=== PATIENT | female | born 1955 | race Caucasian/White ===

== ENCOUNTER → 2018-10-26 | Outpatient (CLI) | payer BC ==
[~2018-10-26] MED LIST: ALPR1 PO; CITA20 PO; CLON.5 PO; CONEST.625 PO; CREON DR 24,001 EACH PO; CYAN1000I IM; Crutch1 EACH MISC; ESCI10 PO; Hydrocodone-Ap1 EA20 PO; LEVSOD75 PO; Norco 7.5-3251 EACH PO; ONDA4 PO; ONDA4ODT MM; QUETIAPINE FUMA50 MG PO; VITAMIN D250000 UNIT PO
[2018-10-26 16:53] LABS: U Amphetamine Screen Not Detected; U Barbituate Screen Not Detected; U Benzodiazapine Screen Not Detected; U Buprenorphine Screen Not Detected; U Cannabinoids Screen Not Detected; U Cocaine Screen Not Detected; U Methadone Screen Not Detected; U Methamphetamine Screen Not Detected; U Opiates Screen Not Detected; U Oxycodone Screen Not Detected; U Phencyclidine Screen Not Detected; U Propoxyphene Screen Not Detected
== END | disposition home or self-care (01) ==
LOC: LAB 15:36 → LAB SHORT 15:36
PROVIDERS: Hospitalist
DX: I10 Essential (primary) hypertension (principal); G89.4 Chronic pain syndrome
CPT/HCPCS: 82570

== ENCOUNTER → 2018-12-07 | Outpatient (CLI) | payer BC ==
[~2018-12-07] MED LIST changes: +ESCI20 PO; +GABA300 PO; +HYDHCL25 PO; -LEVSOD75 PO; +LEVSOD88 PO; +LISI5 PO; +MORP15ER PO; +QUET100 PO; +Zofran4 MG PO
== END | disposition home or self-care (01) ==
LOC: LAB SHORT 17:00 → LAB 17:00
DX: J20.9 Acute bronchitis, unspecified (principal)
CPT/HCPCS: 87070; 87205

== ENCOUNTER 2018-12-24 05:43 | Day surgery (SDC) | payer BC ==
[~2018-12-24] VITALS: Ht 142.2 cm; Wt 57.1 kg
[~2018-12-24 05:43] MED LIST changes: -HYDHCL25 PO
--- NOTE | 2018-12-24 06:47 | NUR ---
History, Chart, Medications and Allergies reviewed before start of procedure. Patient confirms NPO status and agrees with scheduled surgery. Lungs clear T/O to Auscultation. Patient reports completing Chlorhexadine shower X2 prior to admission to hospital. Pre-Op teaching done. Pt verbalizes understanding. Patient States Post-Procedure ride home has been arranged.
--- NOTE | 2018-12-24 07:16 | NUR ---
SENIOR WINDOWS SYSTEMS ADMINISTRATOR REPORT COMPLETED AT BEDSIDE.
--- NOTE | 2018-12-24 10:42 | NUR ---
Discharge instructions reviewed with patient. Patient verbalizes understanding. Copy given to patient to take home. DRG C/D/I. PT TOLERATED PO FLUIDS AND CRACKERS WELL, PAIN FROM 7/10 TO 3/10. ICE PACK ON ABDOMEN AND PT STATES IT FEELS GOOD.
--- NOTE | 2018-12-24 11:01 | NUR ---
1055- PT DRESSED, Discharged via wheelchair to private car for ride home.
== END 2018-12-24 11:01 | disposition home or self-care (01) ==
LOC: ORSCMMR 05:43 → ORD 07:30 → ORSCMMR 07:30
PROVIDERS: Surgery
PROC: 0WUF0JZ Supplement Abdominal Wall with Synthetic Substitute, Open Approach (ICD-10-PCS; principal; 2018-12-24 07:30)
DX: K43.2 Incisional hernia without obstruction or gangrene (principal); I10 Essential (primary) hypertension; E03.9 Hypothyroidism, unspecified; Z79.899 Other long term (current) drug therapy
CPT/HCPCS: 82947; C1781; J1100; J1885; J2250; J2405; J2765; J3010; J7120

== ENCOUNTER 2019-01-02 02:33 | Emergency (ER) | payer BC ==
[~2019-01-02] VITALS: Ht 142.2 cm; Wt 57.1 kg
[2019-01-02] MEDS ORDERED: HYDHCL25 PO (03:23)
== END 2019-01-02 05:40 | disposition home or self-care (01) ==
LOC: ER 02:33
DX: G89.18 Other acute postprocedural pain (principal); F41.9 Anxiety disorder, unspecified; Z88.2 Allergy status to sulfonamides; Z88.6 Allergy status to analgesic agent; Z88.5 Allergy status to narcotic agent; Z88.8 Allergy status to other drugs, medicaments and biological substances; Z91.018 Allergy to other foods; Z79.899 Other long term (current) drug therapy; Z87.891 Personal history of nicotine dependence; Z98.890 Other specified postprocedural states

== ENCOUNTER → 2019-07-29 | Outpatient (CLI) | payer BC ==
[~2019-07-29] MED LIST changes: +EUTHYROX88 MCG PO; +Flovent 110 MCG12 GM INH; +HYDHCL25 PO; +NARCAN4 MG; +ONDA8 MM; +Prinivil10 MG PO
== END | disposition home or self-care (01) ==
LOC: LAB 13:03 → LAB SHORT 13:03
DX: G89.4 Chronic pain syndrome (principal)
CPT/HCPCS: G0480

== ENCOUNTER 2019-08-09 07:25 | Day surgery (SDC) | payer BC ==
[~2019-08-09] VITALS: Ht 142.2 cm; Wt 57.0 kg
--- NOTE | 2019-08-09 08:36 | NUR ---
08/09/19 0836 Jacqui Toledo FIRST 4 IV STICKS INFETRATED. 1 IN RIGHT HAND,WRIST, OTHER IN LEFT HAD AND WRIST
--- NOTE | 2019-08-09 10:47 | NUR ---
08/09/19 1047 Teena Hernandes DELAYED ENTRY 1005 RECIEVED REPORT FROM DLB. PT DROWSY, PAR SCORE 7. PT FOLLOWS COMMANDS THEN FALLS ASLEEP FREQUENTLY, AROUSABLE TO TOUCH. PT TRANSFERRED INTO RECOVERY ROOM AND INTO RECLINER WITH AT CHAIRSIDE. PT STAYS AWAKE AT THIS TIME A&O X5. PT CHATTING WITH . PT MEETS CRITERIA FOR HOME AT THIS TIME.
== END 2019-08-09 10:47 | disposition home or self-care (01) ==
LOC: ORSCSDS 07:25
PROVIDERS: Internal Medicine Gastroenterology
PROC: 0DBK8ZX Excision of Ascending Colon, Via Natural or Artificial Opening Endoscopic, Diagnostic (ICD-10-PCS; principal; 2019-08-09 09:00)
DX: K62.5 Hemorrhage of anus and rectum (principal); Z80.0 Family history of malignant neoplasm of digestive organs; D12.2 Benign neoplasm of ascending colon; K64.8 Other hemorrhoids; E11.9 Type 2 diabetes mellitus without complications; E03.9 Hypothyroidism, unspecified; F41.9 Anxiety disorder, unspecified; K21.9 Gastro-esophageal reflux disease without esophagitis; D64.9 Anemia, unspecified; I10 Essential (primary) hypertension; Z87.891 Personal history of nicotine dependence; Z79.899 Other long term (current) drug therapy
CPT/HCPCS: 82947; 88305; J2250; J2704; J7120

== ENCOUNTER → 2019-09-14 | Outpatient (CLI) | payer BC ==
[2019-09-14 12:19] LABS: BASOPHILS ABSOLUTE AUTO 0.11 K/mm3 (0.00-0.23); BASOPHILS PERCENT AUTO 1 % (0-2); EOSINOPHILS ABSOLUTE AUTO 0.32 K/mm3 (0.00-0.68); EOSINOPHILS PERCENT AUTO 3 % (0-6); Hematocrit 36.6 % (33.0-51.0); Hemoglobin 12.3 g/dL (11.5-16.0); IMMATURE GRAN ABSOLUTE AUTO 0.02 K/mm3 (0.00-0.10); IMMATURE GRAN PERCENT AUTO 0 % (0-1); LYMPHOCYTES ABSOLUTE AUTO 4.48 K/mm3 (0.84-5.20); LYMPHOCYTES PERCENT AUTO 45 % (21-46); MONOCYTES PERCENT AUTO 7 % (4-13); Mean Corpuscular HGB 28.6 pg (26.0-34.0); Mean Corpuscular HGB Conc 33.6 g/dL (31.5-36.5); Mean Corpuscular Volume 85 fL (80-100); Mean Platelet Volume 9.1 fL (9.1-12.4); NEUTROPHILS ABSOLUTE AUTO 4.43 K/mm3 (1.96-9.15); NEUTROPHILS PERCENT AUTO 44 % (41-73); Platelet Count 348 K/mm3 (150-400); RDW Coefficient Variation 12.9 % (11.7-14.2); RDW Standard Deviation 39.8 fL (35.1-46.3); White Blood Cell Count 10.06 K/mm3 (4.00-11.30)
[2019-09-14 12:29] LABS: Albumin, Blood 3.9 g/dL (3.4-5.0); Bilirubin, Total 0.3 mg/dL (0.1-1.0); Bun/Creatinine Ratio 13.5 (12.0-20.0); Calcium, Blood 8.9 mg/dL (8.5-10.1); Creatinine, Blood 1.04 mg/dL (0.40-1.00); Globulin, Blood 3.9 g/dL (2.2-4.0); Potassium, Blood 4.3 mmol/L (3.5-5.5); Total Protein, Blood 7.8 g/dL (6.4-8.2)
== END | disposition home or self-care (01) ==
LOC: LAB SHORT 12:12 → LAB EV 12:12
PROVIDERS: Hospitalist
DX: R11.2 Nausea with vomiting, unspecified (principal)
CPT/HCPCS: 80053; 82150; 83605; 83690; 85025; 86140

== ENCOUNTER → 2019-11-10 | Outpatient (CLI) | payer BC | END | disposition home or self-care (01) | LOC: LAB EV 12:00 → LAB SHORT 12:00 | DX: R30.0 Dysuria (principal); R30.9 Painful micturition, unspecified | CPT/HCPCS: 87086 ==

== ENCOUNTER → 2020-09-06 | Outpatient (CLI) | payer BC ==
[~2020-09-06] MED LIST changes: +ERGO50000 PO; +FLOVENT HFA12 GM; +FLOVENT HFA12 GM INH; +MELATONIN10 M6 PO; +Mirapex0.5 MG PO; +ONDA8 PO; +PRAM.125 PO; +QUET300 PO; +SYNTHROID88 MCG PO; +ZOCOR20 MG PO
[2020-09-08 17:23] LABS: CORONAVIRUS (COVID19) CSH-NRL Negative (Negative)
== END ==
LOC: LAB SHORT 12:49 → LAB EV 12:49
PROVIDERS: Chiropractor
DX: R05 Cough (principal); Z20.828 Contact with and (suspected) exposure to other viral communicable diseases
CPT/HCPCS: U0003

== ENCOUNTER 2020-10-01 06:20 | Day surgery (SDC) | payer BC ==
[~2020-10-01] VITALS: Ht 142.2 cm; Wt 62.7 kg
--- NOTE | 2020-10-01 08:21 | NUR ---
10/01/20 0821 Delio Duque 1 MG EPI ADDED TO THE FIRST BAG OF LR FOR IRRIGATION.
== END 2020-10-01 10:06 | disposition home or self-care (01) ==
LOC: ORSCSDS 06:20
PROVIDERS: Orthopaedic Surgery
PROC: 0SBC4ZZ Excision of Right Knee Joint, Percutaneous Endoscopic Approach (ICD-10-PCS; principal; 2020-10-01 07:30)
DX: S83.241A Other tear of medial meniscus, current injury, right knee, initial encounter (principal); M17.11 Unilateral primary osteoarthritis, right knee; I10 Essential (primary) hypertension; E03.9 Hypothyroidism, unspecified; E11.9 Type 2 diabetes mellitus without complications; F31.9 Bipolar disorder, unspecified; Z79.899 Other long term (current) drug therapy; E78.5 Hyperlipidemia, unspecified; Z87.891 Personal history of nicotine dependence
CPT/HCPCS: J0171; J1100; J1885; J2250; J2405; J2704; J3010; J3370

== ENCOUNTER 2020-12-12 02:53 | Inpatient (IN) | payer BC ==
[~2020-12-12] VITALS: Ht 142.2 cm; Wt 61.2 kg
[2020-12-12] MEDS ORDERED: HYDHCL25 PO (03:39)
[2020-12-12] MEDS ORDERED: CIPR500 PO (03:40)
[2020-12-12] MEDS ORDERED: METR250 PO (03:40)
[2020-12-12 05:26] LABS: BASOPHILS PERCENT AUTO 0 % (0-2); EOSINOPHILS ABSOLUTE AUTO 0.06 K/mm3 (0.00-0.68); EOSINOPHILS PERCENT AUTO 0 % (0-6); Hematocrit 38.8 % (33.0-51.0); Hemoglobin 12.9 g/dL (11.5-16.0); IMMATURE GRAN ABSOLUTE AUTO 0.39 K/mm3 (0.00-0.10); IMMATURE GRAN PERCENT AUTO 1 % (0-1); LYMPHOCYTES PERCENT AUTO 15 % (21-46); MONOCYTES ABSOLUTE AUTO 2.09 K/mm3 (0.16-1.47); MONOCYTES PERCENT AUTO 7 % (4-13); Mean Corpuscular HGB 28.3 pg (26.0-34.0); Mean Corpuscular HGB Conc 33.2 g/dL (31.5-36.5); Mean Corpuscular Volume 85 fL (80-100); Mean Platelet Volume 9.1 fL (9.1-12.4); NEUTROPHILS ABSOLUTE AUTO 24.41 K/mm3 (1.96-9.15); NEUTROPHILS PERCENT AUTO 77 % (41-73); Platelet Count 421 K/mm3 (150-400); RDW Standard Deviation 43.6 fL (35.1-46.3); Red Blood Cell Count 4.56 M/mm3 (3.80-5.20); White Blood Cell Count 31.75 K/mm3 (4.00-11.30)
[2020-12-12 05:44] LABS: Alanine Aminotransfer (ALT/SGP 32 U/L (12-78); Albumin, Blood 3.4 g/dL (3.4-5.0); Albumin/Globulin Ratio 0.9 (0.8-1.8); Alk Phos 111 U/L (50-136); Anion Gap 12 mmol/L (6-16); Aspartate Aminotrans (AST/SGOT 38 U/L (12-37); Bilirubin, Total 0.4 mg/dL (0.1-1.0); Blood Urea Nitrogen 22 mg/dL (8-24); Bun/Creatinine Ratio 27.8 (12.0-20.0); CO2, Blood 20 mmol/L (21-32); Calcium, Blood 7.9 mg/dL (8.5-10.1); Chloride, Blood 101 mmol/L (98-108); Creatinine, Blood 0.79 mg/dL (0.40-1.00); Globulin, Blood 3.8 g/dL (2.2-4.0); Glomerular Filtration Rate >60 (60-); Glucose, Blood 163 mg/dL (70-99); Potassium, Blood 3.7 mmol/L (3.5-5.5); Sodium, Blood 133 mmol/L (136-145); Total Protein, Blood 7.2 g/dL (6.4-8.2)
--- NOTE | 2020-12-12 12:00 | NUR ---
PT ADMITTED TO ROOM 307-2 VIA GURNEY FROM ED. SETTLED IN TO BED AND ORIENTED TO ROOM. HAS BEEN TO BATHROOM A COUPLE TIMES SINCE ARRIVAL. REPORTS URGENCY OF BOWELS WHEN SHE FEELS SHE NEEDS TO GO. INDEPENDENT INTO BATHROOM. DOES NOT REPORT NAUSEA AT THIS TIME.
[2020-12-12] MEDS ORDERED: SYSTANE BALANCE10 ML BOTHEYES (15:45)
[2020-12-12] MEDS ORDERED: ZOCOR20 MG PO (16:01)
[2020-12-12] MEDS ORDERED: SIME80CH PO (16:02)
--- NOTE | 2020-12-12 18:09 | NUR ---
SHIFT SUMMARY PT HAS BEEN TO BATHROOM MULTIPLE TIMES TODAY TO HAVE SMALL STOOLS AND PASS GAS. REPORTS A SIGNIFICANT HISTORY OF INTESTINAL ISSUES AND ORGAN DYSFUNCTION. AT BEDSIDE THIS AFTERNOON. STARTED GOLYTELY BUT REPORTS HER ABDOMEN FEELING INCREASINGLY BLOATED AND UNCOMFORTABLE WITH DRINKING IT. HAS MANAGED TO GET 2 CUPS WORTH DOWN SO FAR. REPORTS WHENEVER SHE HAS A BM IT FEELS LIKE "RAZORS INSIDE". WILL REPORT CONDITION TO ONCOMING SHIFT.
[2020-12-13 05:29] LABS: BASOPHILS ABSOLUTE AUTO 0.05 K/mm3 (0.00-0.23); BASOPHILS PERCENT AUTO 0 % (0-2); EOSINOPHILS ABSOLUTE AUTO 0.46 K/mm3 (0.00-0.68); EOSINOPHILS PERCENT AUTO 3 % (0-6); Hematocrit 31.9 % (33.0-51.0); Hemoglobin 10.5 g/dL (11.5-16.0); IMMATURE GRAN ABSOLUTE AUTO 0.18 K/mm3 (0.00-0.10); IMMATURE GRAN PERCENT AUTO 1 % (0-1); LYMPHOCYTES ABSOLUTE AUTO 4.08 K/mm3 (0.84-5.20); LYMPHOCYTES PERCENT AUTO 24 % (21-46); MONOCYTES ABSOLUTE AUTO 1.03 K/mm3 (0.16-1.47); MONOCYTES PERCENT AUTO 6 % (4-13); Mean Corpuscular HGB 28.8 pg (26.0-34.0); Mean Corpuscular HGB Conc 32.9 g/dL (31.5-36.5); Mean Corpuscular Volume 87 fL (80-100); Mean Platelet Volume 9.6 fL (9.1-12.4); NEUTROPHILS ABSOLUTE AUTO 11.06 K/mm3 (1.96-9.15); NEUTROPHILS PERCENT AUTO 66 % (41-73); Platelet Count 297 K/mm3 (150-400); RDW Coefficient Variation 14.5 % (11.7-14.2); RDW Standard Deviation 46.2 fL (35.1-46.3); Red Blood Cell Count 3.65 M/mm3 (3.80-5.20); White Blood Cell Count 16.86 K/mm3 (4.00-11.30)
[2020-12-13 05:58] LABS: Anion Gap 8 mmol/L (6-16); Blood Urea Nitrogen 9 mg/dL (8-24); Bun/Creatinine Ratio 14.6 (12.0-20.0); CHOL/HDL RATIO 2.4; CO2, Blood 23 mmol/L (21-32); Calcium, Blood 7.5 mg/dL (8.5-10.1); Chloride, Blood 107 mmol/L (98-108); Cholesterol 164 mg/dL (50-200); Creatinine, Blood 0.62 mg/dL (0.40-1.00); Glomerular Filtration Rate >60 (60-); Glucose, Blood 136 mg/dL (70-99); HDL Cholesterol 67 mg/dL (>39); Low Density Lipoprotein Chol 68 mg/dL (0-110); Potassium, Blood 3.7 mmol/L (3.5-5.5); Sodium, Blood 138 mmol/L (136-145); Triglycerides 144 mg/dL (30-160); Very Low Density Lipoprot Chol 28 mg/dL (6-32)
[2020-12-13 08:29] LABS: Source, Urine Voided
[2020-12-13 08:50] LABS: Appearance, Urine Clear (Clear); Bilirubin, Urine Neg (Neg); Blood, Urine Neg (Neg); Color, Urine Yellow (P-Yellow); Glucose Qualitative, Urine Neg (Neg); Ketones, Urine Neg (Neg); Leukocyte Esterase, Urine Neg (Neg); Nitrite, Urine Neg (Neg); Protein, Urine Neg (Neg); Urobilinogen, Urine NORM (Normal)
--- NOTE | 2020-12-13 17:20 | NUR ---
Met with Denice and prior to discharge. Discussed care coordination and jeanna call to expect from Sandra 24 48 hours after discharge. Will schedule 1 week follow up. did not identify any additional care needs at this time. cp
[2020-12-13] MEDS ORDERED: PANTOPRAZOLE SO20 M1 PO (17:46)
[2020-12-13] MEDS ORDERED: METR500 PO (17:46)
[2020-12-13] MEDS ORDERED: LEVOFLOXACIN750 MG PO (17:46)
[2020-12-13] MEDS ORDERED: ARTIFICIAL TEAR15 M2 BOTHEYES (17:46)
--- NOTE | 2020-12-13 19:02 | NUR ---
DISCHARGE INSTRUCTIONS COMPLETED AND DISCUSSED WITH PT EXPRESSING UNDERSTANDING. SCRIPTS FAXED TO [facility]. CONTINUES TO HAVE PAIN PRIMARILY LLQ AND TENDER TO PALPATION BUT SHE WANTED TO GO HOME. TO [facility] VIA W/C.
[2021-05-06] MEDS ORDERED: MORP15ER PO (09:17)
[2021-05-06] MEDS ORDERED: ZOCOR20 MG PO (09:18)
[2021-05-06] MEDS ORDERED: QUET300 PO (09:18)
[2021-05-06] MEDS ORDERED: EUTHYROX88 MCG PO (09:19)
[2021-05-06] MEDS ORDERED: ESCI20 PO (09:19)
[2021-05-06] MEDS ORDERED: ONDA8 PO (09:19)
[2021-05-06] MEDS ORDERED: Mirapex0.125 MG PO (09:19)
[2021-05-06] MEDS ORDERED: TRAZ100 PO (09:19)
[2021-05-06] MEDS ORDERED: Prinivil10 MG PO (09:20)
[2021-05-06] MEDS ORDERED: CONEST.625 PO (09:20)
[2021-05-06] MEDS ORDERED: B-12 COMPL1000 MCG/2 IM (09:20)
[2021-05-06] MEDS ORDERED: ERGO50000 PO (09:20)
[2021-05-07] MEDS ORDERED: QUET100 PO (15:58)
[2021-05-07] MEDS ORDERED: CREON DR 12,001 EACH PO (15:59)
== END 2020-12-13 18:35 | disposition home or self-care (01) | DRG 872 ==
LOC: ER 02:53 → ERHOLD 06:30 → MEDS 11:46
PROVIDERS: Emergency Medicine; ADMIT Internal Medicine
DX: A41.9 Sepsis, unspecified organism (principal); K86.1 Other chronic pancreatitis; E87.2 Acidosis; Z87.891 Personal history of nicotine dependence; E03.9 Hypothyroidism, unspecified; F31.9 Bipolar disorder, unspecified; I10 Essential (primary) hypertension; K21.9 Gastro-esophageal reflux disease without esophagitis; F41.9 Anxiety disorder, unspecified; K59.00 Constipation, unspecified; K86.89 Other specified diseases of pancreas; G89.4 Chronic pain syndrome; G25.81 Restless legs syndrome; K52.9 Noninfective gastroenteritis and colitis, unspecified
CPT/HCPCS: 36415; 74176; 80048; 80053; 80061; 81003; 83036; 83605; 83690; 85025; 87040; 96361; 96365; 96367; 96375; 97165; 97530; 99285-25; A9270; C9113; J0744; J1650; J1956; J2270; J7030; J7042; J7050

== ENCOUNTER 2021-05-22 09:04 | Day surgery (SDC) | payer MEDICARE, BC ==
[~2021-05-22] VITALS: Ht 142.2 cm; Wt 62.9 kg
[~2021-05-22 09:04] MED LIST changes: +ARTIFICIAL TEAR15 M2 BOTHEYES; +B-12 COMPL1000 MCG/2 IM; +CIPR500 PO; +CREON DR 12,001 EACH PO; +LEVOFLOXACIN750 MG PO; +METR250 PO; +METR500 PO; +Mirapex0.125 MG PO; +PANTOPRAZOLE SO20 M1 PO; +SIME80CH PO; +SYSTANE BALANCE10 ML BOTHEYES; +TRAZ100 PO
--- NOTE | 2021-05-22 10:27 | NUR ---
Ambulatory in Day Surgery History, Chart, Medications and Allergies reviewed before start of procedure. Lungs clear T/O to Auscultation. Patient confirms NPO status and agrees with scheduled surgery. Pre-Op teaching done. Pt verbalizes understanding.
--- NOTE | 2021-05-22 12:37 | NUR ---
05/22/21 1237 Cristy Arizmendi RIGHT LOWER EXTREMITY TORUNIQUET 300 MMHG INLATED BY ANESTHESIA AT 1130, DEFLATED AT 1235.
--- NOTE | 2021-05-22 14:10 | NUR ---
pt transferred to room on own bed, drowsy, awakens easily to verbal stimuli, a/o x 4; post op vs commenced and stable. pt on 3l NC with SPO2 >90%. pt oriented to room/call light, provided with PO fluids/snacks, denies nausea. ice/TEDS/PAS in place, capillary refill <3 seconds, warm/pink to operative limb.
--- NOTE | 2021-05-22 18:32 | NUR ---
SHIFT SUMMARY PT WAS INITIALLY VERY SLEEPY BUT PERKED UP EARLY AFTERNOON. WORKED WELL W/ THERAPY. PARTICIPATED. CONTINUES TO DENY PAIN. EMESIS x 1 AFTER SNACK BUT WAS ABLE TO EAT DINNER. VOID x 2. REPORTS HX OF DEMENTIA SO BED ALARM OR TAB ALARM IN USE AT ALL TIMES; ALTHOUGH PT HAS BEEN ALERT & ORIENTED SINCE ARRIVAL TO UNIT.
[2021-05-23 04:53] LABS: BASOPHILS ABSOLUTE AUTO 0.02 K/mm3 (0.00-0.23); BASOPHILS PERCENT AUTO 0 % (0-2); EOSINOPHILS PERCENT AUTO 0 % (0-6); Hematocrit 31.8 % (33.0-51.0); Hemoglobin 10.1 g/dL (11.5-16.0); IMMATURE GRAN ABSOLUTE AUTO 0.05 K/mm3 (0.00-0.10); IMMATURE GRAN PERCENT AUTO 0 % (0-1); LYMPHOCYTES ABSOLUTE AUTO 2.01 K/mm3 (0.84-5.20); LYMPHOCYTES PERCENT AUTO 18 % (21-46); MONOCYTES ABSOLUTE AUTO 0.68 K/mm3 (0.16-1.47); MONOCYTES PERCENT AUTO 6 % (4-13); Mean Corpuscular HGB Conc 31.8 g/dL (31.5-36.5); Mean Corpuscular Volume 91 fL (80-100); Mean Platelet Volume 9.8 fL (9.1-12.4); NEUTROPHILS PERCENT AUTO 76 % (41-73); Platelet Count 212 K/mm3 (150-400); RDW Coefficient Variation 14.8 % (11.7-14.2); RDW Standard Deviation 49.5 fL (35.1-46.3); Red Blood Cell Count 3.48 M/mm3 (3.80-5.20); White Blood Cell Count 11.26 K/mm3 (4.00-11.30)
[2021-05-23 05:15] LABS: Anion Gap 9 mmol/L (6-16); Blood Urea Nitrogen 10 mg/dL (8-24); CO2, Blood 22 mmol/L (21-32); Calcium, Blood 8.5 mg/dL (8.5-10.1); Chloride, Blood 108 mmol/L (98-108); Creatinine, Blood 0.77 mg/dL (0.40-1.00); Glomerular Filtration Rate >60 (60-); Glucose, Blood 139 mg/dL (70-99); Magnesium, Blood 1.9 mg/dL (1.6-2.4); Potassium, Blood 4.3 mmol/L (3.5-5.5); Sodium, Blood 139 mmol/L (136-145)
--- NOTE | 2021-05-23 07:20 | NUR ---
recvd report from previous shift Rn Mary, pt sitting at edge of bed, a/o x4, pleasant/cooperative. pt rates pain at 3/10, call light within reach, bed in lowest position.
--- NOTE | 2021-05-23 07:41 | NUR ---
SHIFT SUMMARY NO ACUTE CHANGES OVERNIGHT. POD1 ON R TKA. PT DENIES NUMBNESS AND TINGLING. RLE WITH DILLON WRAPPED, ELEVATED AND ON CYRO (ICED). CAP REFILL WNL. AMBULATING WITH FWW AND GB, 1 MIN SBA. PT REPORTS R KNEE CAP PAIN. PAIN MANAGED WITH NORCO AND MORPHINE. TOLERATING PO INTAKE DENIES NAUSEA AND VOMITING. SHE REPORTS PASSING FLATUS. VOIDING ADEQUATELY WITHOUT DIFFICULTY. IV ABX WAS ADMINISTERED. PT PLAN TO WORK WITH THERAPIST TODAY. CALL LIGHT WITHIN REACH. REPORT GIVEN TO MEGAN MCKENNA.
--- NOTE | 2021-05-23 09:18 | NUR ---
4043- DR GLENDY SANTO 0910- PT WORKING WITH PHYSICAL THERAPY
[2021-05-23] MEDS ORDERED: CLIN300 PO (10:51)
--- NOTE | 2021-05-23 11:18 | NUR ---
provided discharge teaching and printed material to pt and spouse, who confirm understanding. provided aquacel dressing x 2. removed peripheral IV WNL. pt's belongings will be transferred to awaiting vehicle by pt's . pt will transfer to vehicle via wheelchair.
== END 2021-05-23 11:33 | disposition home or self-care (01) ==
LOC: SURS 09:04 → ORSCMMR 09:04 → ORD 10:30 → SURS 13:59 → ORSCMMR 05-23 11:33 → SURS 05-23 11:33
PROVIDERS: Orthopaedic Surgery
PROC: 8E0YXBZ Computer Assisted Procedure of Lower Extremity (ICD-10-PCS; principal; 2021-05-22 10:30)
PROC: 0SRC0J9 Replacement of Right Knee Joint with Synthetic Substitute, Cemented, Open Approach (ICD-10-PCS; principal; 2021-05-22 10:30)
DX: M17.11 Unilateral primary osteoarthritis, right knee (principal); I10 Essential (primary) hypertension; K21.9 Gastro-esophageal reflux disease without esophagitis; E11.9 Type 2 diabetes mellitus without complications; Z79.899 Other long term (current) drug therapy; Z79.4 Long term (current) use of insulin
CPT/HCPCS: 36415; 73560-RT; 80048; 82947; 83735; 85025; 97110; 97116; 97162; A9270; C1713; C1776; J0171; J0735; J1100; J1885; J2250; J2270; J2370; J2405; J2704; J2795; J3010; J3370; J7120

== ENCOUNTER 2021-06-09 22:53 | Emergency (ER) | payer MEDICARE, BC ==
[~2021-06-09 22:53] MED LIST changes: +CLIN300 PO
== END 2021-06-09 23:16 | disposition left against medical advice (07) ==
LOC: ER 22:53
DX: Z53.21 Procedure and treatment not carried out due to patient leaving prior to being seen by health care provider (principal)

== ENCOUNTER 2021-06-16 00:50 | Emergency (ER) | payer MEDICARE, BC ==
[~2021-06-16] VITALS: Ht 142.2 cm; Wt 60.8 kg
[2021-06-16 08:32] LABS: BASOPHILS PERCENT AUTO 1 % (0-2); EOSINOPHILS ABSOLUTE AUTO 0.06 K/mm3 (0.00-0.68); EOSINOPHILS PERCENT AUTO 0 % (0-6); Hemoglobin 11.8 g/dL (11.5-16.0); IMMATURE GRAN ABSOLUTE AUTO 0.05 K/mm3 (0.00-0.10); IMMATURE GRAN PERCENT AUTO 0 % (0-1); LYMPHOCYTES PERCENT AUTO 26 % (21-46); MONOCYTES ABSOLUTE AUTO 0.97 K/mm3 (0.16-1.47); MONOCYTES PERCENT AUTO 6 % (4-13); Mean Corpuscular HGB Conc 31.9 g/dL (31.5-36.5); Mean Corpuscular Volume 91 fL (80-100); Mean Platelet Volume 10.3 fL (9.1-12.4); NEUTROPHILS ABSOLUTE AUTO 10.32 K/mm3 (1.96-9.15); NEUTROPHILS PERCENT AUTO 67 % (41-73); Platelet Count 410 K/mm3 (150-400); RDW Coefficient Variation 15.1 % (11.7-14.2); RDW Standard Deviation 50.4 fL (35.1-46.3); Red Blood Cell Count 4.07 M/mm3 (3.80-5.20)
[2021-06-16 08:45] LABS: Alanine Aminotransfer (ALT/SGP 24 U/L (12-78); Albumin, Blood 3.2 g/dL (3.4-5.0); Albumin/Globulin Ratio 0.8 (0.8-1.8); Alk Phos 104 U/L (50-136); Anion Gap 8 mmol/L (6-16); Aspartate Aminotrans (AST/SGOT 38 U/L (12-37); Bilirubin, Total 0.2 mg/dL (0.1-1.0); Blood Urea Nitrogen 11 mg/dL (8-24); Bun/Creatinine Ratio 12.6 (12.0-20.0); CO2, Blood 23 mmol/L (21-32); Calcium, Blood 8.4 mg/dL (8.5-10.1); Chloride, Blood 107 mmol/L (98-108); Creatinine, Blood 0.87 mg/dL (0.40-1.00); Globulin, Blood 3.8 g/dL (2.2-4.0); Glomerular Filtration Rate >60 (60-); Glucose, Blood 135 mg/dL (70-99); Potassium, Blood 3.5 mmol/L (3.5-5.5); Sodium, Blood 138 mmol/L (136-145)
[2021-06-16] MEDS ORDERED: CIPR500 PO (11:25)
[2021-06-16] MEDS ORDERED: DICY20 PO (11:36)
== END 2021-06-16 11:53 | disposition home or self-care (01) ==
LOC: ER 00:50
PROVIDERS: Physician Assistant
DX: K52.9 Noninfective gastroenteritis and colitis, unspecified (principal); I10 Essential (primary) hypertension; K21.9 Gastro-esophageal reflux disease without esophagitis; E03.9 Hypothyroidism, unspecified; E78.5 Hyperlipidemia, unspecified; Z88.2 Allergy status to sulfonamides; Z88.8 Allergy status to other drugs, medicaments and biological substances; Z88.6 Allergy status to analgesic agent; Z88.5 Allergy status to narcotic agent; Z91.018 Allergy to other foods; Z91.041 Radiographic dye allergy status; Z79.890 Hormone replacement therapy; Z79.899 Other long term (current) drug therapy
CPT/HCPCS: 36415; 74176; 80053; 83690; 85025; 93005; 93010; 96365; 96375; 96376; 99284-25; J0744; J2405; J3010; J7030

== ENCOUNTER 2021-07-09 15:58 | Inpatient (IN) | payer MEDICARE, BC ==
[~2021-07-09] VITALS: Ht 142.2 cm; Wt 59.0 kg
[~2021-07-09 15:58] MED LIST changes: +DICY20 PO
[2021-07-09 17:35] LABS: Source, Urine Clean Catch
[2021-07-09 17:44] LABS: Appearance, Urine Clear (Clear); Bilirubin, Urine Neg (Neg); Blood, Urine Neg (Neg); Color, Urine Yellow (P-Yellow); Glucose Qualitative, Urine Neg (Neg); Ketones, Urine Neg (Neg); Leukocyte Esterase, Urine Neg (Neg); Nitrite, Urine Neg (Neg); Protein, Urine 2+ (Neg); Urobilinogen, Urine NORM (Normal)
[2021-07-09 17:56] LABS: Bacteria Many /hpf
[2021-07-09 17:57] LABS: Calcium Oxalate Crystals Rare /hpf; Red Blood Cells, Urine 0-2 /hpf (0-2); Squamous Epithelial Cells Mod /hpf (Few)
[2021-07-09 19:00] LABS: BASOPHILS PERCENT AUTO 1 % (0-2); EOSINOPHILS ABSOLUTE AUTO 0.31 K/mm3 (0.00-0.68); EOSINOPHILS PERCENT AUTO 4 % (0-6); Hematocrit 26.4 % (33.0-51.0); Hemoglobin 8.4 g/dL (11.5-16.0); IMMATURE GRAN ABSOLUTE AUTO 0.02 K/mm3 (0.00-0.10); IMMATURE GRAN PERCENT AUTO 0 % (0-1); LYMPHOCYTES ABSOLUTE AUTO 2.77 K/mm3 (0.84-5.20); LYMPHOCYTES PERCENT AUTO 33 % (21-46); MONOCYTES PERCENT AUTO 7 % (4-13); Mean Corpuscular HGB 29.4 pg (26.0-34.0); Mean Corpuscular HGB Conc 31.8 g/dL (31.5-36.5); Mean Corpuscular Volume 92 fL (80-100); Mean Platelet Volume 12.1 fL (9.1-12.4); NEUTROPHILS ABSOLUTE AUTO 4.52 K/mm3 (1.96-9.15); NEUTROPHILS PERCENT AUTO 54 % (41-73); Platelet Count 148 K/mm3 (150-400); RDW Coefficient Variation 14.6 % (11.7-14.2); RDW Standard Deviation 49.7 fL (35.1-46.3); Red Blood Cell Count 2.86 M/mm3 (3.80-5.20); White Blood Cell Count 8.32 K/mm3 (4.00-11.30)
[2021-07-09 19:23] LABS: Troponin I <0.015 ng/mL (0.000-0.040)
[2021-07-09 19:26] LABS: Albumin/Globulin Ratio 0.8 (0.8-1.8); Bilirubin, Total 0.4 mg/dL (0.1-1.0); Bun/Creatinine Ratio 11.2 (12.0-20.0); Calcium, Blood 8.3 mg/dL (8.5-10.1); Creatinine, Blood 7.66 mg/dL (0.40-1.00); Globulin, Blood 3.7 g/dL (2.2-4.0); Potassium, Blood 5.4 mmol/L (3.5-5.5); Total Protein, Blood 6.7 g/dL (6.4-8.2)
[2021-07-09] MEDS ORDERED: Aspir 8181 MG PO (19:30)
[2021-07-09] MEDS ORDERED: TRAZ100 PO (19:31)
[2021-07-09 21:06] LABS: Ferritin, Serum 192 ng/mL (8-252); Iron Serum 68 ug/dL (50-170); Percent Saturation 24.1 % (15.0-50.0); Total Iron Binding Capacity 282 ug/dL (250-450)
[2021-07-09 21:51] LABS: SARS-Cov-2 (COVID-19) PCR, MMC NEGATIVE (NEGATIVE)
--- NOTE | 2021-07-09 23:45 | NUR ---
ADMIT NOTE HANDOFF RECEIVED FROM MANAGER QUALITY COMPLIANCE KAREEM. PT ARRIVED TO FLOOR VIA GURNEY. PERSONAL POSSESSIONS WITH PT. PT ORIENTED TO UNIT. CALL BUTTON WITHIN REACH
--- NOTE | 2021-07-10 04:36 | NUR ---
SHIFT SUMMARY ADMITTED FOR CLAUDIA THIS SHIFT. FULL CODE. PLAN IS FOR NEPHROLOGY CONSULT. SHE REQUESTED PAIN MEDICATION THIS SHIFT. IV FLUIDS INFUSING
[2021-07-10 06:06] LABS: BASOPHILS ABSOLUTE AUTO 0.07 K/mm3 (0.00-0.23); BASOPHILS PERCENT AUTO 1 % (0-2); EOSINOPHILS ABSOLUTE AUTO 0.39 K/mm3 (0.00-0.68); EOSINOPHILS PERCENT AUTO 5 % (0-6); Hematocrit 27.9 % (33.0-51.0); Hemoglobin 8.8 g/dL (11.5-16.0); IMMATURE GRAN ABSOLUTE AUTO 0.02 K/mm3 (0.00-0.10); IMMATURE GRAN PERCENT AUTO 0 % (0-1); LYMPHOCYTES ABSOLUTE AUTO 2.88 K/mm3 (0.84-5.20); LYMPHOCYTES PERCENT AUTO 37 % (21-46); MONOCYTES ABSOLUTE AUTO 0.63 K/mm3 (0.16-1.47); MONOCYTES PERCENT AUTO 8 % (4-13); Mean Corpuscular HGB 29.1 pg (26.0-34.0); Mean Corpuscular HGB Conc 31.5 g/dL (31.5-36.5); Mean Corpuscular Volume 92 fL (80-100); Mean Platelet Volume 11.6 fL (9.1-12.4); NEUTROPHILS ABSOLUTE AUTO 3.83 K/mm3 (1.96-9.15); NEUTROPHILS PERCENT AUTO 49 % (41-73); Platelet Count 151 K/mm3 (150-400); RDW Coefficient Variation 14.7 % (11.7-14.2); RDW Standard Deviation 50.1 fL (35.1-46.3); Red Blood Cell Count 3.02 M/mm3 (3.80-5.20); White Blood Cell Count 7.82 K/mm3 (4.00-11.30)
[2021-07-10 07:36] LABS: Albumin, Blood 3.1 g/dL (3.4-5.0); Albumin/Globulin Ratio 0.8 (0.8-1.8); Bilirubin, Total 0.3 mg/dL (0.1-1.0); Bun/Creatinine Ratio 12.5 (12.0-20.0); Calcium, Blood 8.9 mg/dL (8.5-10.1); Creatinine, Blood 5.99 mg/dL (0.40-1.00); Potassium, Blood 5.7 mmol/L (3.5-5.5); Total Protein, Blood 7.1 g/dL (6.4-8.2)
--- NOTE | 2021-07-10 10:24 | NUR ---
HEEL BLACKER/COMPOUNDING PHARMACY TECHNICIAN REFERRAL - ADMIT: 07/09/21 DISCHARGE: TBD ADMIT: 07/09/21 DISCHARGE: TBD DX. Acute kidney injury CC: GEMINI GUO RESIDENCE: HOME - [address] [place] [id number] NEXT OF KIN/CONTACTS: JENNIFER SCHAEFER, SPOUSE - [phone] DME: NONE CCM: NONE HH/HOSPICE PRIOR TO ADMIT: NONE UPDATE 07/10/21: PER CHART REVIEW, PATIENT'S GFR 5 L YESTERDAY AND GFR 7 L THIS AM. REVIEWED [facility] CHART - LAST BMP ON 05/23/21 SHOWS GFR WNL. PT. HAS BEEN EVALUATED PREVIOUSLY BY [facility] KE OLIVIA MD. FOR PELVIC ORGAN PROLAPSE AND URINARY INCONTINENCE. CONSULT NOTE 05/09/21 MENTIONS REFERRAL TO SPECIALIST IN FEMALE UROLOGY. NO FURTHER NOTES.
--- NOTE | 2021-07-10 19:11 | NUR ---
TRANSFER PATIENT WAS TRANSFERED VIA WHEEL CHAIR TO SURGERY CENTER.
--- NOTE | 2021-07-10 22:36 | NUR ---
PATIENT REFUSED PAS SHE IS NOT ABLE TO SLEEP WITH THEM ON. PAS DISCONTINUED PER REQUEST.
--- NOTE | 2021-07-11 00:43 | NUR ---
PATIENT WIDE-AWAKE PRIOR TO AND AFTER MORPHINE WAS GIVEN. UPDATED CHART ACCORDINGLY.
--- NOTE | 2021-07-11 01:13 | NUR ---
PATIENT SLEEPING SOUNDLY WHEN I ENTERED ROOM. WILL CONTINUE TO MONITOR. CALL LIGHT WITHIN REACH.
--- NOTE | 2021-07-11 03:28 | NUR ---
PATIENT IS SLEEPING IN HER ROOM. CALL LIGHT IN REACH. WILL CONTINUE MONITORING.
[2021-07-11 06:10] LABS: HBSAG SCREEN Negative (Negative); HEP B CORE AB, TOT Negative (Negative); HEP C VIRUS AB 0.1 (0.0-0.9)
--- NOTE | 2021-07-11 06:16 | NUR ---
END OF SHIFT SUMMARY PATIENT SLEPT WELL THROUGHOUT THE NIGHT. PATIENT REQUESTED PAIN MEDICATION THIS SHIFT. REPORTED PAIN RELIEF WITH MORPHINE GIVEN. FULL CODE. IV FLUIDS INFUSING. CONTINUE TO MONITOR.
[2021-07-11 06:26] LABS: Hematocrit 26.2 % (33.0-51.0); Hemoglobin 8.3 g/dL (11.5-16.0)
[2021-07-11 06:59] LABS: Albumin, Blood 2.9 g/dL (3.4-5.0); Anion Gap 6 mmol/L (6-16); Blood Urea Nitrogen 48 mg/dL (8-24); Bun/Creatinine Ratio 14.9 (12.0-20.0); CO2, Blood 30 mmol/L (21-32); Calcium, Blood 7.9 mg/dL (8.5-10.1); Chloride, Blood 105 mmol/L (98-108); Creatinine, Blood 3.22 mg/dL (0.40-1.00); Glomerular Filtration Rate 14 (60-); Glucose, Blood 119 mg/dL (70-99); Magnesium, Blood 1.4 mg/dL (1.6-2.4); Phosphorus, Blood 3.2 mg/dL (2.5-4.9); Potassium, Blood 4.4 mmol/L (3.5-5.5); Sodium, Blood 141 mmol/L (136-145)
--- NOTE | 2021-07-11 10:58 | NUR ---
VO DR.OKENYE MALONEY ASPRIN 81MG AT 1000 9.2.21. RN DOCUMENTED IN JAN. END NOTE
--- NOTE | 2021-07-11 11:29 | NUR ---
PER NURSE SALICYLIC ACID BLENDER: JOSE LUIS MCKENNA TO BE SENT HOME DT [facility], SEVERAL OTHER PT DCS. FOR THIS SPECIFIC PT REPORT GIVEN TO CLARISA BLUM AND TO HAND OFF PT CARE ONCE SHE RETURNS FROM HER LUNCH BREAK. PT RESTING COMFORTABLY, HOB ELEVATED, LOCKED WHEELS AND ROOM CLEAR OF CLUTTER. PT APPEARS PLEASANT AND IN GOOD SPIRITS. END NOTE. ORSC.RDS
--- NOTE | 2021-07-11 20:29 | NUR ---
PT A/O WATCHING TV OUT IN LOBBY, DENIES ANY NEEDS AT THIS TIME, iv RUNNING WITHOUT PAIN. PT BRINGING PT SOME SNACKS, OKAYED BY NURSE. PT AGREED TO GO BACK TO ROOM FOR NIGHT MEDS AND BEDTIME AT 2100.
--- NOTE | 2021-07-11 22:13 | NUR ---
Pt back to bed, new linens. Pt given 2100 medications with no complaints. Bedside table at pts bed, pt denies any needs at this time, resting comfortably.
--- NOTE | 2021-07-11 23:18 | NUR ---
PT RESTING COMFORTABLE, NO NEEDS AT THIS TIME.
--- NOTE | 2021-07-12 02:07 | NUR ---
ASSUMING CARE RN TOOK REPORT ON THIS PT AT 0200. PT IS CURRENTLY RESTING IN BED AND APPEARS TO BE ASLEEP. PT HAS CALL LIGHT IN REACH. PO FLUIDS AT BEDSIDE. NO NEEDS AT THIS TIME. BED IS IN THE LOWEST, LOCKED POSITION.
[2021-07-12 05:17] LABS: Hematocrit 26.4 % (33.0-51.0); Hemoglobin 8.7 g/dL (11.5-16.0)
[2021-07-12 05:32] LABS: Albumin, Blood 2.9 g/dL (3.4-5.0); Anion Gap 4 mmol/L (6-16); Blood Urea Nitrogen 31 mg/dL (8-24); Bun/Creatinine Ratio 13.5 (12.0-20.0); CO2, Blood 30 mmol/L (21-32); Calcium, Blood 8.5 mg/dL (8.5-10.1); Chloride, Blood 105 mmol/L (98-108); Creatinine, Blood 2.29 mg/dL (0.40-1.00); Glomerular Filtration Rate 21 (60-); Glucose, Blood 105 mg/dL (70-99); Magnesium, Blood 2.8 mg/dL (1.6-2.4); Phosphorus, Blood 2.6 mg/dL (2.5-4.9); Potassium, Blood 4.4 mmol/L (3.5-5.5); Sodium, Blood 139 mmol/L (136-145)
--- NOTE | 2021-07-12 06:11 | NUR ---
SHIFT SUMMARY PT SLEPT WELL THROUGHOUT THE NIGHT. PT WAS WOKE UP AT 0500 TO DO LABS. PT ALSO AMBULATED TO THE RESTROOM TO VOID. PT BACK TO BED WITH PAS AND WARM BLANKETS. CALL LIGHT IN REACH. BED ADJUSTED FOR COMFORT. PT REQUESTED TO LEAVE THE LIGHTS ON AND PLANS TO GO BACK TO SLEEP.
--- NOTE | 2021-07-12 13:43 | NUR ---
DISCHARGE NOTE PT STABLE FOR DISCHARGE. IV REMOVED. DISCHARGE INSTRUCTIONS AND DISCHARGE MEDICATIONS REVIEWED WITH PT. PT VERBALIZES UNDERSTANDING AND DENIES QUESTIONS. PT DISCHARGED VIA WC TO WAITING CAR.
== END 2021-07-12 13:44 | disposition home or self-care (01) | DRG 683 ==
LOC: ER 15:58 → ORSCIP 20:17 → MEDS 20:17 → ORSCIP 07-10 18:00
PROVIDERS: Internal Medicine Nephrology; Physician Assistant; Student in an Organized Health Care Education/Training Program; ADMIT Hospitalist
DX: N17.9 Acute kidney failure, unspecified (principal); K86.1 Other chronic pancreatitis; E87.2 Acidosis; E86.0 Dehydration; E03.9 Hypothyroidism, unspecified; F41.9 Anxiety disorder, unspecified; K21.9 Gastro-esophageal reflux disease without esophagitis; E78.5 Hyperlipidemia, unspecified; Z20.822 Contact with and (suspected) exposure to COVID-19; I12.9 Hypertensive chronic kidney disease with stage 1 through stage 4 chronic kidney disease, or unspecified chronic kidney disease; F31.9 Bipolar disorder, unspecified; R74.01 Elevation of levels of liver transaminase levels; K76.0 Fatty (change of) liver, not elsewhere classified; D63.1 Anemia in chronic kidney disease; N18.9 Chronic kidney disease, unspecified; E86.9 Volume depletion, unspecified; K59.00 Constipation, unspecified; E87.5 Hyperkalemia; E83.42 Hypomagnesemia; Z88.6 Allergy status to analgesic agent; Z88.1 Allergy status to other antibiotic agents; Z91.041 Radiographic dye allergy status; Z88.5 Allergy status to narcotic agent; Z88.0 Allergy status to penicillin; Z88.2 Allergy status to sulfonamides; Z88.8 Allergy status to other drugs, medicaments and biological substances; Z91.018 Allergy to other foods; Z91.048 Other nonmedicinal substance allergy status; Z90.49 Acquired absence of other specified parts of digestive tract; Z90.89 Acquired absence of other organs; Z90.710 Acquired absence of both cervix and uterus; Z98.890 Other specified postprocedural states; Z79.899 Other long term (current) drug therapy; Z79.82 Long term (current) use of aspirin; Z90.2 Acquired absence of lung [part of]
CPT/HCPCS: 36415; 74176; 76705; 76770; 80053; 80069; 81001; 82436; 82570; 82607; 82728; 82746; 83540; 83550; 83690; 83735; 84300; 84484; 84540; 85014; 85018; 85025; 86704; 86708; 86803; 87086; 87340; 93005; 93010; 96374; 96375; 99285-25; A9270; J1644; J2270; J2405; J3475; J7030; J7070; J7120; U0004

== ENCOUNTER → 2021-11-17 | Outpatient (CLI) | payer BC, MEDICARE ==
[~2021-11-17] MED LIST changes: +Aspir 8181 MG PO
[2021-11-17 13:35] LABS: BASOPHILS ABSOLUTE AUTO 0.06 K/mm3 (0.00-0.23); BASOPHILS PERCENT AUTO 1 % (0-2); EOSINOPHILS ABSOLUTE AUTO 0.18 K/mm3 (0.00-0.68); EOSINOPHILS PERCENT AUTO 2 % (0-6); Hematocrit 31.7 % (33.0-51.0); IMMATURE GRAN ABSOLUTE AUTO 0.02 K/mm3 (0.00-0.10); IMMATURE GRAN PERCENT AUTO 0 % (0-1); LYMPHOCYTES ABSOLUTE AUTO 3.19 K/mm3 (0.84-5.20); LYMPHOCYTES PERCENT AUTO 36 % (21-46); MONOCYTES ABSOLUTE AUTO 0.45 K/mm3 (0.16-1.47); MONOCYTES PERCENT AUTO 5 % (4-13); Mean Corpuscular HGB Conc 31.5 g/dL (31.5-36.5); Mean Corpuscular Volume 85 fL (80-100); Mean Platelet Volume 10.1 fL (9.1-12.4); NEUTROPHILS PERCENT AUTO 56 % (41-73); Platelet Count 279 K/mm3 (150-400); RDW Standard Deviation 50.4 fL (35.1-46.3); Red Blood Cell Count 3.71 M/mm3 (3.80-5.20)
[2021-11-17 13:52] LABS: Alanine Aminotransfer (ALT/SGP 31 U/L (12-78); Albumin, Blood 3.3 g/dL (3.4-5.0); Albumin/Globulin Ratio 0.9 (0.8-1.8); Alk Phos 126 U/L (40-126); Anion Gap 11 mmol/L (6-16); Aspartate Aminotrans (AST/SGOT 36 U/L (12-37); Bilirubin, Total 0.5 mg/dL (0.1-1.0); Blood Urea Nitrogen 8 mg/dL (8-24); Bun/Creatinine Ratio 9.2 (12.0-20.0); CO2, Blood 25 mmol/L (21-32); Calcium, Blood 8.8 mg/dL (8.5-10.1); Chloride, Blood 104 mmol/L (98-108); Creatinine, Blood 0.87 mg/dL (0.40-1.00); Globulin, Blood 3.8 g/dL (2.2-4.0); Glomerular Filtration Rate >60 (60-); Glucose, Blood 114 mg/dL (70-99); Potassium, Blood 3.7 mmol/L (3.5-5.5); Sodium, Blood 140 mmol/L (136-145); Thyroid Stimulating Hormone 2.513 uIU/mL (0.360-4.800); Total Protein, Blood 7.1 g/dL (6.4-8.2)
[2021-11-17 13:53] LABS: Troponin I <0.017 ng/mL (0.000-0.040)
== END | disposition home or self-care (01) ==
LOC: LAB SHORT 13:29
PROVIDERS: Physician Assistant
DX: E03.8 Other specified hypothyroidism (principal); R06.00 Dyspnea, unspecified
CPT/HCPCS: 80053; 83880; 84443; 84484; 85025

== ENCOUNTER 2022-09-09 08:43 | Day surgery (SDC) | payer MEDICARE, BC ==
[~2022-09-09] VITALS: Ht 142.2 cm; Wt 60.7 kg
--- NOTE | 2022-09-09 10:36 | NUR ---
09/09/22 1036 Cheri Solorzano TETRACAINE INTO LEFT EYE AT 1006 PLEDGET INTO LEFT EYE AT 1010 BETADINE SKIN TEST ON LEFT FORE ARM. NO ADVERSE REACTION NOTED.. NO REDNESS OR RASH. SKIN CLEN DRY AND INTACT
--- NOTE | 2022-09-09 12:28 | NUR ---
09/09/22 1228 Efrain Bryant PT D/C VIA W/C TO CAR DRIVEN BY , PERSONAL BELONGINGS RETURNED JACKET, EYEGLASSES, CANE. PT VU D/C INSTRUCTIONS, DENIES ANY NEED.
== END 2022-09-09 12:20 | disposition home or self-care (01) ==
LOC: ORSCSDS 08:43
PROVIDERS: Student in an Organized Health Care Education/Training Program
PROC: 08DK3ZZ Extraction of Left Lens, Percutaneous Approach (ICD-10-PCS; principal; 2022-09-09 11:15)
DX: H25.13 Age-related nuclear cataract, bilateral (principal); I10 Essential (primary) hypertension; E11.9 Type 2 diabetes mellitus without complications; F41.9 Anxiety disorder, unspecified; F32.A Depression, unspecified; K21.9 Gastro-esophageal reflux disease without esophagitis; E66.9 Obesity, unspecified; Z68.30 Body mass index [BMI] 30.0-30.9, adult; E03.9 Hypothyroidism, unspecified; Z79.899 Other long term (current) drug therapy
CPT/HCPCS: 82947; J2001; J2250; J3010; J7040; V2632

== ENCOUNTER 2022-09-23 07:33 | Day surgery (SDC) | payer MEDICARE, BC ==
[~2022-09-23] VITALS: Ht 142.2 cm; Wt 63.1 kg
[~2022-09-23 07:33] MED LIST changes: +TIZA4 PO
[2022-09-23] MEDS ORDERED: AMLO5 (07:49)
[2022-09-23] MEDS ORDERED: CREON DR 12,001 EACH (07:49)
[2022-09-23] MEDS ORDERED: CALC.25 (07:50)
[2022-09-23] MEDS ORDERED: ONDA4ODT (07:50)
--- NOTE | 2022-09-23 07:57 | NUR ---
09/23/22 0757 Laila Tejada TETRACAINE TO RIGHT EYE AT 0747 PLEDGET TO RIGHT EYE AT 0748 BY [email or web address]
== END 2022-09-23 09:50 | disposition home or self-care (01) ==
LOC: ORSCSDS 07:33
PROVIDERS: Student in an Organized Health Care Education/Training Program
PROC: 08RJ3JZ Replacement of Right Lens with Synthetic Substitute, Percutaneous Approach (ICD-10-PCS; principal; 2022-09-23 09:00)
DX: H25.11 Age-related nuclear cataract, right eye (principal); I10 Essential (primary) hypertension; E03.9 Hypothyroidism, unspecified; Z79.899 Other long term (current) drug therapy
CPT/HCPCS: 82947; J2001; J2250; J3010; J7040; V2632

== ENCOUNTER → 2022-12-31 | Outpatient (CLI) | payer MEDICARE, BC ==
[~2022-12-31] MED LIST changes: +AMLO5; +CALC.25; +CREON DR 12,001 EACH; +ONDA4ODT
[2022-12-31 16:41] LABS: BASOPHILS ABSOLUTE AUTO 0.07 K/mm3 (0.00-0.23); BASOPHILS PERCENT AUTO 1 % (0-2); EOSINOPHILS ABSOLUTE AUTO 0.05 K/mm3 (0.00-0.68); EOSINOPHILS PERCENT AUTO 0 % (0-6); Hematocrit 42.6 % (33.0-51.0); Hemoglobin 14.7 g/dL (11.5-16.0); IMMATURE GRAN ABSOLUTE AUTO 0.03 K/mm3 (0.00-0.10); IMMATURE GRAN PERCENT AUTO 0 % (0-1); LYMPHOCYTES ABSOLUTE AUTO 4.71 K/mm3 (0.84-5.20); LYMPHOCYTES PERCENT AUTO 38 % (21-46); MONOCYTES PERCENT AUTO 5 % (4-13); Mean Corpuscular HGB 31.1 pg (26.0-34.0); Mean Corpuscular HGB Conc 34.5 g/dL (31.5-36.5); Mean Corpuscular Volume 90 fL (80-100); Mean Platelet Volume 9.8 fL (9.1-12.4); NEUTROPHILS ABSOLUTE AUTO 7.09 K/mm3 (1.96-9.15); NEUTROPHILS PERCENT AUTO 57 % (41-73); Platelet Count 210 K/mm3 (150-400); RDW Coefficient Variation 13.1 % (11.7-14.2); Red Blood Cell Count 4.73 M/mm3 (3.80-5.20); White Blood Cell Count 12.55 K/mm3 (4.00-11.30)
[2022-12-31 16:53] LABS: Albumin, Blood 3.9 g/dL (3.4-5.0); Bilirubin, Total 0.4 mg/dL (0.1-1.0); Bun/Creatinine Ratio 10.9 (12.0-20.0); Creatinine, Blood 1.01 mg/dL (0.40-1.00); Globulin, Blood 3.9 g/dL (2.2-4.0); Potassium, Blood 3.7 mmol/L (3.5-5.5); Total Protein, Blood 7.8 g/dL (6.4-8.2)
== END | disposition home or self-care (01) ==
LOC: LAB SHORT 16:35
PROVIDERS: Chiropractor
DX: R10.13 Epigastric pain (principal)
CPT/HCPCS: 80053; 83690; 84484; 85025

== ENCOUNTER → 2023-03-23 | Outpatient (CLI) | payer MEDICARE, BC ==
[2023-03-24 10:39] LABS: Candida species (DNA Probe) Negative (NEGATIVE); G. vaginalis (DNA Probe) Negative (NEGATIVE); T. vaginalis (DNA Probe) Negative (NEGATIVE)
== END | disposition home or self-care (01) ==
LOC: LAB 12:00 → LAB SHORT 12:00
PROVIDERS: Family Medicine
DX: B37.2 Candidiasis of skin and nail (principal)
CPT/HCPCS: 87480; 87510; 87660

== ENCOUNTER → 2023-03-25 | Outpatient (CLI) | payer MEDICARE, BC ==
[2023-04-03 10:10] LABS: TRICYCLIC ANTIDEP Negative ng/mL (Cutoff=100)
== END ==
LOC: LAB SHORT 07:40 → LAB 07:40
PROVIDERS: Hospitalist
DX: G89.4 Chronic pain syndrome (principal)
CPT/HCPCS: G0480; G0481

== ENCOUNTER → 2023-07-09 | Outpatient (CLI) | payer MEDICARE, BC ==
[2023-07-10 08:15] LABS: G. vaginalis (DNA Probe) Negative (NEGATIVE); T. vaginalis (DNA Probe) Negative (NEGATIVE)
[2023-07-10 08:16] LABS: Candida species (DNA Probe) Positive (NEGATIVE)
== END | disposition home or self-care (01) ==
LOC: LAB SHORT 14:10 → LAB 14:10
PROVIDERS: Family Medicine
DX: N89.8 Other specified noninflammatory disorders of vagina (principal)
CPT/HCPCS: 87480; 87510; 87660

== ENCOUNTER → 2024-05-28 | Outpatient (CLI) | payer MEDICARE, BC ==
[~2024-05-28] MED LIST changes: -AMLO5; +AMLO5 PO; -CREON DR 12,001 EACH; -ONDA4ODT; +ONDA4ODT PO; +PRAV20 PO; +SPIR25 PO; +Vitamin D2000 UNIT PO
[2024-05-28 13:04] LABS: BASOPHILS ABSOLUTE AUTO 0.05 K/mm3 (0.00-0.23); BASOPHILS PERCENT AUTO 1 % (0-2); EOSINOPHILS PERCENT AUTO 3 % (0-6); Hemoglobin 11.3 g/dL (11.5-16.0); IMMATURE GRAN ABSOLUTE AUTO 0.01 K/mm3 (0.00-0.10); IMMATURE GRAN PERCENT AUTO 0 % (0-1); LYMPHOCYTES ABSOLUTE AUTO 5.25 K/mm3 (0.84-5.20); LYMPHOCYTES PERCENT AUTO 59 % (21-46); MONOCYTES ABSOLUTE AUTO 0.42 K/mm3 (0.16-1.47); MONOCYTES PERCENT AUTO 5 % (4-13); Mean Corpuscular HGB 30.9 pg (26.0-34.0); Mean Corpuscular HGB Conc 33.2 g/dL (31.5-36.5); Mean Corpuscular Volume 93 fL (80-100); NEUTROPHILS ABSOLUTE AUTO 2.83 K/mm3 (1.96-9.15); NEUTROPHILS PERCENT AUTO 32 % (41-73); RDW Coefficient Variation 13.8 % (11.7-14.2); RDW Standard Deviation 47.4 fL (35.1-46.3); Red Blood Cell Count 3.66 M/mm3 (3.80-5.20); White Blood Cell Count 8.86 K/mm3 (4.00-11.30)
[2024-05-28 13:19] LABS: Mean Platelet Volume 10.3 fL (9.1-12.4); Platelet Count 121 K/mm3 (150-400)
[2024-05-28 13:23] LABS: Albumin, Blood 3.3 g/dL (3.4-5.0); Albumin/Globulin Ratio 0.9 (0.8-1.8); Bilirubin, Total 0.4 mg/dL (0.1-1.0); Bun/Creatinine Ratio 12.3 (12.0-20.0); Calcium, Blood 8.7 mg/dL (8.5-10.1); Creatinine, Blood 2.44 mg/dL (0.40-1.00); Globulin, Blood 3.6 g/dL (2.2-4.0); Potassium, Blood 3.7 mmol/L (3.5-5.5); Thyroid Stimulating Hormone 3.979 uIU/mL (0.360-4.800); Total Protein, Blood 6.9 g/dL (6.4-8.2)
== END | disposition home or self-care (01) ==
LOC: LAB SHORT 12:58 → LAB 12:58
PROVIDERS: Physician Assistant
DX: I95.9 Hypotension, unspecified (principal); R00.1 Bradycardia, unspecified; R53.83 Other fatigue
CPT/HCPCS: 80053; 83880; 84443; 84484; 85025

== ENCOUNTER 2024-05-29 14:38 | Emergency (ER) | payer MEDICARE, BC ==
[~2024-05-29] VITALS: Ht 142.2 cm; Wt 60.8 kg
[2024-05-29] MEDS ORDERED: NS 1,000 ML IV SCH (14:55)
[2024-05-29 16:54] VITALS: BP 93/61
== END 2024-05-29 17:56 | disposition home or self-care (01) ==
LOC: ER 14:38
DX: I95.9 Hypotension, unspecified (principal); K29.70 Gastritis, unspecified, without bleeding; E86.0 Dehydration; E03.9 Hypothyroidism, unspecified; K21.9 Gastro-esophageal reflux disease without esophagitis; E78.5 Hyperlipidemia, unspecified; I12.9 Hypertensive chronic kidney disease with stage 1 through stage 4 chronic kidney disease, or unspecified chronic kidney disease; N18.9 Chronic kidney disease, unspecified; Z79.899 Other long term (current) drug therapy; Z88.2 Allergy status to sulfonamides; Z91.018 Allergy to other foods; Z88.0 Allergy status to penicillin; Z88.1 Allergy status to other antibiotic agents; Z91.041 Radiographic dye allergy status; Z88.6 Allergy status to analgesic agent; Z88.8 Allergy status to other drugs, medicaments and biological substances
CPT/HCPCS: 96360; 96361; 99283-25; J7030

== ENCOUNTER → 2024-05-29 | Outpatient (CLI) | payer MEDICARE, BC ==
[2024-05-29 10:50] LABS: Albumin, Blood 3.1 g/dL (3.4-5.0); Albumin/Globulin Ratio 0.9 (0.8-1.8); Bilirubin, Total 0.4 mg/dL (0.1-1.0); Bun/Creatinine Ratio 21.3 (12.0-20.0); Calcium, Blood 8.4 mg/dL (8.5-10.1); Creatinine, Blood 1.08 mg/dL (0.40-1.00); Globulin, Blood 3.4 g/dL (2.2-4.0); Total Protein, Blood 6.5 g/dL (6.4-8.2)
[2024-05-29 10:51] LABS: Potassium, Blood 5.1 mmol/L (3.5-5.5)
== END | disposition home or self-care (01) ==
LOC: LAB SHORT 10:26 → LAB 10:26
PROVIDERS: Physician Assistant
DX: N28.9 Disorder of kidney and ureter, unspecified (principal)
CPT/HCPCS: 80053

== ENCOUNTER → 2024-07-12 | Outpatient (CLI) | payer MEDICARE, BC | END | disposition home or self-care (01) | LOC: LAB SHORT 16:25 → LAB 16:25 | DX: N39.0 Urinary tract infection, site not specified (principal) | CPT/HCPCS: 87086 ==

== ENCOUNTER 2024-10-31 23:56 | Emergency (ER) | payer MEDICARE, BC ==
[~2024-10-31] VITALS: Ht 142.2 cm; Wt 79.4 kg
[2024-11-01 01:10] LABS: BASOPHILS ABSOLUTE AUTO 0.05 K/mm3 (0.00-0.23); BASOPHILS PERCENT AUTO 1 % (0-2); EOSINOPHILS PERCENT AUTO 0 % (0-6); Hematocrit 40.4 % (33.0-51.0); IMMATURE GRAN ABSOLUTE AUTO 0.02 K/mm3 (0.00-0.10); IMMATURE GRAN PERCENT AUTO 0 % (0-1); LYMPHOCYTES ABSOLUTE AUTO 1.77 K/mm3 (0.84-5.20); LYMPHOCYTES PERCENT AUTO 20 % (21-46); MONOCYTES ABSOLUTE AUTO 0.39 K/mm3 (0.16-1.47); MONOCYTES PERCENT AUTO 4 % (4-13); Mean Corpuscular HGB 30.8 pg (26.0-34.0); Mean Corpuscular HGB Conc 34.7 g/dL (31.5-36.5); Mean Corpuscular Volume 89 fL (80-100); Mean Platelet Volume 9.5 fL (9.1-12.4); NEUTROPHILS ABSOLUTE AUTO 6.65 K/mm3 (1.96-9.15); NEUTROPHILS PERCENT AUTO 75 % (41-73); Platelet Count 169 K/mm3 (150-400); RDW Coefficient Variation 13.5 % (11.7-14.2); RDW Standard Deviation 43.8 fL (35.1-46.3); Red Blood Cell Count 4.55 M/mm3 (3.80-5.20); White Blood Cell Count 8.88 K/mm3 (4.00-11.30)
[2024-11-01] MEDS ORDERED: Ondansetron HCl 2 MG / ML 2ML Vial IV ONE (01:30)
[2024-11-01 02:00] VITALS: BP 204/74
[2024-11-01 02:03] LABS: Influenza A, PCR NEGATIVE (NEGATIVE); Influenza B, PCR NEGATIVE (NEGATIVE); Resp Syncytial Virus, PCR NEGATIVE (NEGATIVE); SARS-Cov-2 (COVID-19) PCR, MMC NEGATIVE (NEGATIVE)
[2024-11-01 02:22] LABS: Albumin, Blood 3.9 g/dL (3.4-5.0); Albumin/Globulin Ratio 1.1 (0.8-1.8); Bilirubin, Total 1.2 mg/dL (0.1-1.0); Bun/Creatinine Ratio 14.5 (12.0-20.0); Calcium, Blood 9.5 mg/dL (8.5-10.1); Creatinine, Blood 0.69 mg/dL (0.40-1.00); Globulin, Blood 3.6 g/dL (2.2-4.0); Potassium, Blood 3.2 mmol/L (3.5-5.5); Total Protein, Blood 7.5 g/dL (6.4-8.2)
[2024-11-01] MEDS ORDERED: Lactated Ringer's 1,000 ML IV SCH (02:40)
[2024-11-01] MEDS ORDERED: DiphenhydrAMINE HCl 50 MG/ML 1ML Vial IV ONE (02:40)
[2024-11-01] MEDS ORDERED: Potassium Chl 20MEQ/Water100ML 100 ML IV SCH (02:40)
[2024-11-01] MEDS ORDERED: Potassium Chloride 40 MEQ in NS 250 ML IV ONE (03:00)
[2024-11-01] MEDS ORDERED: ONDA4ODT MM (05:05)
[2024-11-01] MEDS ORDERED: RX Prepack 2 Tabs Ondansetron ODT 4MG UD ONE (05:05)
[2024-11-01] MEDS ORDERED: Morphine Sulfate IR 15 MG Tab PO ONE (05:10)
[2024-11-01] MEDS ORDERED: MORPHINE SULFAT10 MG PO (05:12)
[2024-11-01] MEDS ORDERED: Potassium Chloride 10 Meq Tablet SA PO ONE (05:20)
[2024-11-01] MEDS ORDERED: MORP15ER PO (10:17)
== END 2024-11-01 05:30 | disposition home or self-care (01) ==
LOC: ER 23:56
PROVIDERS: Emergency Medicine
DX: K86.1 Other chronic pancreatitis (principal); K85.90 Acute pancreatitis without necrosis or infection, unspecified; F11.23 Opioid dependence with withdrawal; R11.2 Nausea with vomiting, unspecified; K21.9 Gastro-esophageal reflux disease without esophagitis; I10 Essential (primary) hypertension; E78.5 Hyperlipidemia, unspecified; I12.9 Hypertensive chronic kidney disease with stage 1 through stage 4 chronic kidney disease, or unspecified chronic kidney disease; N18.9 Chronic kidney disease, unspecified; Z79.899 Other long term (current) drug therapy; Z88.2 Allergy status to sulfonamides; Z88.0 Allergy status to penicillin; Z88.6 Allergy status to analgesic agent; Z88.5 Allergy status to narcotic agent; Z88.8 Allergy status to other drugs, medicaments and biological substances; Z91.014 Allergy to mammalian meats
CPT/HCPCS: 0241U; 76705; 80053; 83690; 85025; 93005; 93010; 96361; 96374; 96375; 99284-25; A9270; J1200; J2405; J3480; J7050; J7120

== ENCOUNTER → 2024-11-06 | Outpatient (CLI) | payer MEDICARE, BC ==
[~2024-11-06] MED LIST changes: +MORPHINE SULFAT10 MG PO
[2024-11-06 14:04] LABS: BASOPHILS ABSOLUTE AUTO 0.06 K/mm3 (0.00-0.23); BASOPHILS PERCENT AUTO 1 % (0-2); EOSINOPHILS ABSOLUTE AUTO 0.06 K/mm3 (0.00-0.68); EOSINOPHILS PERCENT AUTO 1 % (0-6); Hematocrit 40.4 % (33.0-51.0); Hemoglobin 13.7 g/dL (11.5-16.0); IMMATURE GRAN ABSOLUTE AUTO 0.02 K/mm3 (0.00-0.10); IMMATURE GRAN PERCENT AUTO 0 % (0-1); LYMPHOCYTES ABSOLUTE AUTO 3.43 K/mm3 (0.84-5.20); LYMPHOCYTES PERCENT AUTO 37 % (21-46); MONOCYTES ABSOLUTE AUTO 0.51 K/mm3 (0.16-1.47); MONOCYTES PERCENT AUTO 6 % (4-13); Mean Corpuscular HGB 30.3 pg (26.0-34.0); Mean Corpuscular HGB Conc 33.9 g/dL (31.5-36.5); Mean Corpuscular Volume 89 fL (80-100); Mean Platelet Volume 9.6 fL (9.1-12.4); NEUTROPHILS ABSOLUTE AUTO 5.22 K/mm3 (1.96-9.15); NEUTROPHILS PERCENT AUTO 56 % (41-73); Platelet Count 145 K/mm3 (150-400); RDW Coefficient Variation 13.5 % (11.7-14.2); RDW Standard Deviation 43.8 fL (35.1-46.3); Red Blood Cell Count 4.52 M/mm3 (3.80-5.20)
[2024-11-06 14:16] LABS: Albumin, Blood 3.9 g/dL (3.4-5.0); Albumin/Globulin Ratio 1.2 (0.8-1.8); Bilirubin, Total 0.9 mg/dL (0.1-1.0); Bun/Creatinine Ratio 13.5 (12.0-20.0); Calcium, Blood 8.7 mg/dL (8.5-10.1); Creatinine, Blood 0.74 mg/dL (0.40-1.00); Globulin, Blood 3.3 g/dL (2.2-4.0); Total Protein, Blood 7.2 g/dL (6.4-8.2)
== END ==
LOC: LAB SHORT 14:00 → LAB 14:00
PROVIDERS: Physician Assistant
DX: K86.1 Other chronic pancreatitis (principal)
CPT/HCPCS: 80053; 83690; 85025

== ENCOUNTER 2024-12-07 06:08 | Observation (INO) | payer MEDICARE, BC ==
[~2024-12-07] VITALS: Ht 139.7 cm; Wt 58.6 kg
[2024-12-07] VITALS (19 sets, daily range): BP systolic 124–170; BP diastolic 46–79
[~2024-12-07 06:08] MED LIST changes: +FURO20 PO; +NYAMYC15 G1 TOP; +PANT40 PO; +RESTASIS MULTI5.5 ML BOTHEYES
[2024-12-07] MEDS ORDERED: Tranexamic Acid 1,000 MG in NS 100 ML IV SCH (06:30)
[2024-12-07] MEDS ORDERED: Lactated Ringer's 1,000 ML IV SCH (06:30)
[2024-12-07] MEDS ORDERED: Clindamycin 900mg in D5W 50ML 50 ML IV SCH ×2 (06:30→15:30)
[2024-12-07] MEDS ORDERED: OxyCODONE HCL 10 MG TABCR PO SCH (06:30)
[2024-12-07] MEDS ORDERED: Chlorhexidine Mouth Care 15 ML UDC MT SCH (06:30)
[2024-12-07] MEDS ORDERED: Acetaminophen 500 MG Tab PO SCH ×2 (06:30→16:00)
[2024-12-07] MEDS ORDERED: Ropivacaine 0.5% HCl/Pf 123.125 MG,EPINEPHrine HCL 0.25 MG,Ketorolac Tromethamine 15 MG... INFIL SCH (06:30)
[2024-12-07] MEDS ORDERED: Vancomycin HCL 1,000 MG in NS 250 ML IV SCH ×2 (06:30→19:30)
[2024-12-07] MEDS ORDERED: Ondansetron HCl 2 MG / ML 2ML Vial IV PRN (07:10)
[2024-12-07] MEDS ORDERED: Bisacodyl 10 MG Supp PR PRN (07:10)
[2024-12-07] MEDS ORDERED: OxyCODONE HCL 5 MG TAB PO PRN ×2 (07:10)
[2024-12-07] MEDS ORDERED: NS 1,000 ML IV SCH (07:15)
[2024-12-07] MEDS ORDERED: FLU VACC TS2024-25(6MOS UP)/PF 45 MCG/0.5 ML SYRINGE IM SCH (07:15)
[2024-12-07] MEDS ORDERED: DiphenhydrAMINE HCL 25 MG Cap PO PRN (07:15)
[2024-12-07] MEDS ORDERED: Magnesium Hydroxide Conc 10 ML UDC PO PRN (07:15)
[2024-12-07] MEDS ORDERED: Pramipexole DI-HCL 0.125 MG Tab PO PRN (07:20)
[2024-12-07] MEDS ORDERED: Morphine Sulfate 15 MG TABCR PO PRN (07:20)
[2024-12-07] MEDS ORDERED: Morphine Sulfate 10 MG/ML 1MLSYR IV PRN (07:20)
[2024-12-07] MEDS ORDERED: Metoclopramide HCl 5MG / ML 2ML Vial IV PRN (07:20)
[2024-12-07] MEDS ORDERED: Cyanocobalamin 1000 MCG/ML 1ML Vial IM SCH (07:20)
[2024-12-07] MEDS ORDERED: TiZANidine HCl 4 MG Tab PO PRN (07:25)
[2024-12-07] MEDS ORDERED: Ondansetron HCl 2 MG / ML 2ML Vial IV ONE (07:25)
[2024-12-07] MEDS ORDERED: Midazolam HCl 1MG / ML 2ML Vial IV ONE (07:25)
[2024-12-07] MEDS ORDERED: Ondansetron 4 MG SoluTab MM SCH (07:25)
[2024-12-07] MEDS ORDERED: Midazolam HCl 1MG / ML 2ML Vial ONE (07:26)
[2024-12-07] MEDS ORDERED: Ondansetron HCl 2 MG / ML 2ML Vial ONE ×2 (07:26→08:03)
[2024-12-07] MEDS ORDERED: propofoL 20 ML IV ONE (07:28)
[2024-12-07] MEDS ORDERED: FentaNYL Citrate 50 MCG/ML 2 ML Injection ONE ×3 (07:28→09:52)
[2024-12-07] MEDS ORDERED: Lidocaine HCl 2% 20 ML MDV ONE (07:29)
[2024-12-07] MEDS ORDERED: Amylase/Lipase/Protease DR Cap 12,000 PO SCH (07:30)
[2024-12-07] MEDS ORDERED: Insulin Regular 100 UNIT/ML 10ML Vial SC SCH (07:30)
--- NOTE | 2024-12-07 07:48 | NUR ---
0635 AMBULATE TO [facility], CONFIRMED SURGERY AND SURGEON, AT BEDSIDE. PRE OP TEACHING DONE. PT NERVOUS AND HAS SOME NAUSEA, REASSURED AND COMFORTED PT. PT TEARY EYED DURING IV START
[2024-12-07] MEDS ORDERED: Dexamethasone Sod Phos 10 MG/ML 1ML VIAL ONE (08:03)
[2024-12-07] MEDS ORDERED: HYDROmorphone HCl/Pf 1MG SYR ONE ×3 (08:29→10:15)
[2024-12-07] MEDS ORDERED: Labetalol HCL 5 MG/ML 4ML Injection (Single Dose) ONE (08:30)
[2024-12-07] MEDS ORDERED: Sugammadex Sodium 200 MG/2ML SDV (100 MG/ML) ONE (09:31)
[2024-12-07] MEDS ORDERED: Ipratropium/Albuterol SulF 2.5-0.5MG/3 ML Amp ONE (09:51)
[2024-12-07] MEDS ORDERED: Metoclopramide HCl 5MG / ML 2ML Vial ONE (10:15)
--- NOTE | 2024-12-07 11:11 | NUR ---
TRANSFER TO UNIT AFTER RECEIVING REPORT FROM RESTAURANT FRONT MANAGER, PATIENT TRANSFERRED TO UNIT AT APPROX 1055. PATIENT ALERT AND ORIENTED X4. COMMUNICATING NEEDS EFFECTIVELY. S/P L TKA - VSS. CURRENTLY ON 2L VIA NC, SATs >90%. RR EVEN, UNLABORED. AQUACEL AND DILLON WRAP DRESSING C/D/I - NO SHADOWING NOTED. COOLING DEVICE IN PLACE. PAIN 6/10 - TOLERABLE AT THIS TIME. TOLERATING SMALL SIPS OF WATER AND A FEW SNACKS - IVF INFUSING. AT BEDSIDE. CALL LIGHT IN REACH.
--- NOTE | 2024-12-07 14:33 | NUR ---
Pt. is awake and sitting in a chair when she welcomes my visit. Pt. is pleasant. Facilitated a life review and considered matters of lois and belief. Pt. displayed evidence of confidence with regard to her procedure and recovery. Pt. also displayed a growing level of trust as our visit continued. Prayed with Pt. Pt. verbalized gratitude for the spiritual care visit.
--- NOTE | 2024-12-07 16:44 | NUR ---
SHIFT SUMMARY NO ACUTE EVENTS SINCE TRANSFER TO UNIT. PATIENT UP IN CHAIR MAJORITY OF THE AFTERNOON. WORKED WITH PHYSICAL THERAPY - AMBULATING WITH SBA FWW GB. VSS. SBP 130s. MAP >65. REMAINS ON ROOM AIR, SATs >90%. DRESSING TO L KNEE C/D/I - NO SHADOWING NOTED. MANAGING PAIN PER EMAR AND WITH COOLING DEVICE. TOLERATING PO INTAKE - IV SALINE LOCKED. VOIDING. CALL LIGHT IN REACH.
[2024-12-07] MEDS ORDERED: Miconazole Nitrate 2% 85 GM PWD TOP SCH (21:00)
[2024-12-07] MEDS ORDERED: Docusate Sodium 100 MG Cap PO SCH (21:00)
[2024-12-07] MEDS ORDERED: EYE BOTHEYES SCH (21:00)
[2024-12-07] MEDS ORDERED: CYCLOSPORINE 0.05% BOTHEYES SCH (21:00)
[2024-12-08] VITALS (21 sets, daily range): BP systolic 151–217; BP diastolic 52–89
[2024-12-08 05:39] LABS: BASOPHILS ABSOLUTE AUTO 0.05 K/mm3 (0.00-0.23); BASOPHILS PERCENT AUTO 0 % (0-2); EOSINOPHILS PERCENT AUTO 0 % (0-6); Hematocrit 39.6 % (33.0-51.0); IMMATURE GRAN ABSOLUTE AUTO 0.08 K/mm3 (0.00-0.10); IMMATURE GRAN PERCENT AUTO 1 % (0-1); LYMPHOCYTES ABSOLUTE AUTO 3.24 K/mm3 (0.84-5.20); LYMPHOCYTES PERCENT AUTO 21 % (21-46); MONOCYTES ABSOLUTE AUTO 1.24 K/mm3 (0.16-1.47); MONOCYTES PERCENT AUTO 8 % (4-13); Mean Corpuscular HGB Conc 35.4 g/dL (31.5-36.5); Mean Corpuscular Volume 88 fL (80-100); Mean Platelet Volume 9.8 fL (9.1-12.4); NEUTROPHILS ABSOLUTE AUTO 10.77 K/mm3 (1.96-9.15); NEUTROPHILS PERCENT AUTO 70 % (41-73); Platelet Count 182 K/mm3 (150-400); RDW Coefficient Variation 14.1 % (11.7-14.2); RDW Standard Deviation 45.2 fL (35.1-46.3); Red Blood Cell Count 4.52 M/mm3 (3.80-5.20); White Blood Cell Count 15.38 K/mm3 (4.00-11.30)
[2024-12-08 05:43] LABS: Bun/Creatinine Ratio 14.3 (12.0-20.0); Calcium, Blood 8.6 mg/dL (8.5-10.1); Creatinine, Blood 0.84 mg/dL (0.40-1.00); Magnesium, Blood 1.8 mg/dL (1.6-2.4); Potassium, Blood 3.8 mmol/L (3.5-5.5)
[2024-12-08] MEDS ORDERED: Levothyroxine Sodium 0.088 MG Tab PO SCH (06:00)
--- NOTE | 2024-12-08 06:12 | NUR ---
SHIFT SUMMARY POD 1 S/P L TKA. DRESSING/DILLON WRAP CDI. POLAR PACK TO LEFT KNEE. IV SL. PAIN MANAGED PER EMAR. KRISTA PO INTAKE. AMB IN HALLWAY WITH FWW, GB, AND SBA. PT DRESSED AND UP IN CHAIR AT THIS TIME. PLAN TO WORK WITH THERAPY AGAIN TODAY AND D/C HOME.
[2024-12-08] MEDS ORDERED: HydrALAZINE HCl 10 MG Tab PO PRN ×3 (08:20→09:05)
[2024-12-08] MEDS ORDERED: Linezolid 600 MG Tab PO SCH (09:00)
[2024-12-08] MEDS ORDERED: Pravastatin Sodium 20 MG Tab PO SCH (09:00)
[2024-12-08] MEDS ORDERED: Citalopram Hydrobromide 20 MG Tab PO SCH (09:00)
[2024-12-08] MEDS ORDERED: Aspirin 81 MG Chew PO SCH (09:00)
--- NOTE | 2024-12-08 09:00 | NUR ---
MORNING NOTE THIS RN ASSUMED CARE AT APPROX 0715. PATIENT ALERT AND ORIENTED X4 - SITTING IN RECLINER CHAIR. REPORTING 7/10 PAIN L KNEE - RECEIVED PO OXYCONTIN PRIOR TO ASSUMPTION OF CARE. SBP 200s - PATIENT ASYMPTOMATIC. DENIES CHEST PAIN, PRESSURE. REPORTS HX OF HTN WITH MEDICATION MANAGEMENT, PCP RECENTLY STOPPED MEDICATION DUE TO HYPOTENSION. S/P L TKA. MD PIKE AT BEDSIDE THIS MORNING TO ROUND - MD NOTIFIED OF HTN, HOSPITALIST CONSULT ORDERED. PER MD PIKE, SBP <180 PRIOR TO DC HOME. DRESSING TO L KNEE CHANGED BY THIS MORNING, AQUACEL C/D/I. HOSPITALIST AT BEDSIDE THIS MORNING - PLAN TO START HYDRALAZINE FOR HTN, ADMINISTERED PER EMAR. PATIENT TO FOLLOW UP WITH PCP FOLLOWING FOR BP. PATIENT UP WITH SBA MATI BANUELOS - AWAITING SECOND PHYSICAL THERAPY EVAL. IS REPORTING MILD NAUSEA AND DECREASED APPETITE. MEDICATED PER EMAR WITH IV ZOFRAN - REPORTING RELIEF. AT BEDSIDE. CALL LIGHT IN REACH.
--- NOTE | 2024-12-08 10:35 | NUR ---
HTN PATIENTs SBP SUSTAINING IN THE 200s, DESPITE PO HYDRALAZINE ADMINISTRATION PER EMAR. REMAINS ASYMPTOMATIC. MD BURGESS NOTIFIED - MD TO REVIEW CHART AND PLACE ORDERS.
[2024-12-08] MEDS ORDERED: Labetalol HCL 5 MG/ML 4ML Injection (Single Dose) IV PRN (10:40)
--- NOTE | 2024-12-08 11:22 | NUR ---
ORDER IN PLACE FOR IV LABETALOL FOR HTN. PATIENTs SBP SUSTAINING 200s. REMAINS ASYMPTOMATIC. TELEMETRY IN PLACE FOR IV LABETALOL ADMINISTRATION - SHOWING SINUS 80s PER ADULT SECONDARY EDUCATION INSTRUCTOR. IV LABETALOL ADMINISTERED PER EMAR. WILL CONTINUE TO MONITOR
--- NOTE | 2024-12-08 12:48 | NUR ---
UPDATE PATIENTs SBP SUSTAINING 170s-190s POST IV LABETALOL ADMINISTRATION. REMAINS ASYMPTOMATIC. IS REPORTING 6-06/18 PAIN - MANAGING PER EMAR WITH REPORTED RELIEF. MD NOTIFIED - MD AT BEDSIDE. LISA BP OBTAINED X2 - SBP 180s. MD TO ORDER ECHOCARDIOGRAM AND REVIEW CHART FOR MEDICATION MANAGEMENT.
[2024-12-08] MEDS ORDERED: Losartan Potassium 50 MG Tab PO ONE (13:35)
[2024-12-08] MEDS ORDERED: Simethicone 80 MG Chew PO ONE (16:15)
--- NOTE | 2024-12-08 16:49 | NUR ---
SHIFT SUMMARY SEE PREVIOUS NOTES. PATIENT REMAINS ALERT AND ORIENTED X4. TELEMETRY SHOWING SINUS 70s PER CUSTOMS COLLECTOR - NO EVENTS REPORTED. SBP SUSTAINING 190s-200s. REMAINS ASYMPTOMATIC. ECHOCARDIOGRAM COMPLETED THIS AFTERNOON. AWARE. POD 1 L TKA - DRESSING C/D/I. DID NOT WORK WITH PHYSICAL THERAPY TODAY DUE TO HTN. UP WITH SBA FWW GB TO CHAIR OR RESTROOM. UP IN CHAIR FOR MAJORITY OF THE DAY. MANAGING PAIN PER EMAR. VOIDING. CALL LIGHT IN REACH. AT BEDSIDE THROUGHOUT DAY.
[2024-12-08 17:09] LABS: Calcium, Blood 8.3 mg/dL (8.5-10.1); Creatinine, Blood 0.86 mg/dL (0.40-1.00); Potassium, Blood 3.6 mmol/L (3.5-5.5)
[2024-12-08] MEDS ORDERED: Pantoprazole Sodium 20 MG Tab PO SCH (18:00)
[2024-12-08] MEDS ORDERED: HydrALAZINE HCl 20 MG / ML 1ML Vial IV PRN (18:30)
[2024-12-09] VITALS (16 sets, daily range): BP systolic 100–175; BP diastolic 42–70
--- NOTE | 2024-12-09 04:52 | NUR ---
SHIFT SUMMARY POD2 LEFT TKA. AQUACEL CDI WITH POLAR PACK IN PLACE. PAIN MANAGED PER EMAR, REPOSITIONING, AND [facility]ERAP[facility]. KRISTA SMALL AMOUNT OF PO INTAKE, MEDICATED X 1 FOR N/V. PT STATES INTERMITTENT N/V AT BASELINE. AMB WITH FWW, GB AND SBA. MEDICATED X 1 WITH PRN HYDRALAZINE. HR SINUS TACH AT 108, PER HOME CARE ADMINISTRATOR. SPO2 ABOVE 93% ON RA. Q1 BP PER ORDERS. PT PLEASANT AND COOPERATIVE WITH CARE. WILL GIVE REPORT TO ONCOMING RN .
[2024-12-09 07:04] LABS: BASOPHILS ABSOLUTE AUTO 0.06 K/mm3 (0.00-0.23); BASOPHILS PERCENT AUTO 0 % (0-2); EOSINOPHILS ABSOLUTE AUTO 0.02 K/mm3 (0.00-0.68); EOSINOPHILS PERCENT AUTO 0 % (0-6); Hematocrit 40.4 % (33.0-51.0); Hemoglobin 13.9 g/dL (11.5-16.0); IMMATURE GRAN ABSOLUTE AUTO 0.05 K/mm3 (0.00-0.10); IMMATURE GRAN PERCENT AUTO 0 % (0-1); LYMPHOCYTES ABSOLUTE AUTO 4.84 K/mm3 (0.84-5.20); LYMPHOCYTES PERCENT AUTO 29 % (21-46); MONOCYTES ABSOLUTE AUTO 1.49 K/mm3 (0.16-1.47); MONOCYTES PERCENT AUTO 9 % (4-13); Mean Corpuscular HGB 30.7 pg (26.0-34.0); Mean Corpuscular HGB Conc 34.4 g/dL (31.5-36.5); Mean Corpuscular Volume 89 fL (80-100); Mean Platelet Volume 9.5 fL (9.1-12.4); NEUTROPHILS ABSOLUTE AUTO 10.15 K/mm3 (1.96-9.15); NEUTROPHILS PERCENT AUTO 61 % (41-73); Platelet Count 231 K/mm3 (150-400); RDW Coefficient Variation 14.8 % (11.7-14.2); RDW Standard Deviation 48.4 fL (35.1-46.3); Red Blood Cell Count 4.53 M/mm3 (3.80-5.20); White Blood Cell Count 16.61 K/mm3 (4.00-11.30)
[2024-12-09 07:19] LABS: Bun/Creatinine Ratio 16.2 (12.0-20.0); Calcium, Blood 8.5 mg/dL (8.5-10.1); Creatinine, Blood 0.68 mg/dL (0.40-1.00); Potassium, Blood 3.4 mmol/L (3.5-5.5)
[2024-12-09] MEDS ORDERED: HydrALAZINE HCl 20 MG / ML 1ML Vial IV PRN (09:05)
[2024-12-09] MEDS ORDERED: Labetalol HCL 100 MG TAB PO SCH (11:00)
--- NOTE | 2024-12-09 12:19 | NUR ---
DR. CHAPARRO CALLED AT ABOUT 0900 CONCERNING PT HTN AND HR 110-120'S AT REST. SEE NEW ORDERS. PT HAS DENIED DIZZINESS, CP. PT REPORTS SURGICAL PAIN IS TOLERABLE AFTER MORNING DOSE OF PO MS COTIN. CONTINUING Q1 BP AND HR MONITORING. PT'S CALL LIGHT IN REACH
--- NOTE | 2024-12-09 12:29 | NUR ---
Pt. is awake in a chair when she welcomes my visit. Pt. is pleasant. Rapport i quickly re-established. Pt. verbalized an expectation that she will be discharged today. Normalized the Pt. experience. Pt. displayed evidence of understanding and agreement. Prayed with the Pt. Pt. verbalized gratitude for [facility] spiritual care visit.
[2024-12-09] MEDS ORDERED: ASPI81CH PO (17:11)
[2024-12-09] MEDS ORDERED: LINE600 PO (17:11)
[2024-12-09] MEDS ORDERED: AMLO5 PO (17:12)
[2024-12-09] MEDS ORDERED: PERCOCET 10-321 EA13 PO (17:12)
--- NOTE | 2024-12-09 17:43 | NUR ---
DR. CHAPARRO AT PT BEDSIDE AT ABOUT 1610. PT OK FOR DC. DR. CHAPARRO DISCUSSED HOME MEDICATIONS WITH THE PT
== END 2024-12-09 17:43 | disposition home or self-care (01) ==
LOC: ORSCMMR 06:08 → SURS 10:51 → ORSCMMR 10:59 → SURS 10:59 → ORSCMMR 11:00 → ORD 11:00 → SURS 12-09 17:43
PROVIDERS: Orthopaedic Surgery; ADMIT Family Medicine
PROC: 0SRD0JZ Replacement of Left Knee Joint with Synthetic Substitute, Open Approach (ICD-10-PCS; principal; 2024-12-07 07:30)
DX: M17.12 Unilateral primary osteoarthritis, left knee (principal); E11.9 Type 2 diabetes mellitus without complications; E03.9 Hypothyroidism, unspecified; K21.9 Gastro-esophageal reflux disease without esophagitis; I16.0 Hypertensive urgency; E78.5 Hyperlipidemia, unspecified; Z79.899 Other long term (current) drug therapy; Z87.891 Personal history of nicotine dependence; Z88.8 Allergy status to other drugs, medicaments and biological substances; Z88.2 Allergy status to sulfonamides; Z88.5 Allergy status to narcotic agent; Z88.0 Allergy status to penicillin; Z91.041 Radiographic dye allergy status; Z91.018 Allergy to other foods
CPT/HCPCS: 36415; 71045; 73560-LT; 80048; 82947; 83735; 83880; 84484; 85025; 93306; 96374; 96375; 96376; 97110; 97110-CQ; 97116; 97162; 97530-CQ; A9270; C1713; C1776; G0378; J0171; J0360; J0735; J1100; J1171; J1815; J1885; J2250; J2270; J2405; J2470; J2704; J2765; J2795; J3010; J3370; J7050; J7120

== ENCOUNTER → 2024-12-21 | Outpatient (CLI) | payer MEDICARE, BC ==
[~2024-12-21] MED LIST changes: +ASPI81CH PO; +LINE600 PO; +PERCOCET 10-321 EA13 PO
[2024-12-21 16:04] LABS: Bacterial Vaginosis PCR Negative (NEGATIVE); Candida Group, PCR NOT DETECTED (NOT DETECT)
[2024-12-21 16:07] LABS: Candida glabrata-krusei, PCR DETECTED (NOT DETECT)
== END | disposition home or self-care (01) ==
LOC: LAB 11:00 → LAB SHORT 11:00
PROVIDERS: Obstetrics & Gynecology
DX: N76.0 Acute vaginitis (principal)
CPT/HCPCS: 81515

== ENCOUNTER 2025-01-29 12:00 | Emergency (ER) | payer MEDICARE, BC ==
[~2025-01-29] VITALS: Ht 139.7 cm; Wt 59.0 kg
[2025-01-29] MEDS ORDERED: DiphenhydrAMINE HCl 50 MG/ML 1ML Vial IV ONE (12:25)
[2025-01-29] MEDS ORDERED: MethylPREDNISolone Sod Succ 40 MG VIAL IV ONE (12:25)
[2025-01-29 12:33] LABS: BASOPHILS ABSOLUTE AUTO 0.04 K/mm3 (0.00-0.23); BASOPHILS PERCENT AUTO 1 % (0-2); EOSINOPHILS ABSOLUTE AUTO 0.15 K/mm3 (0.00-0.68); EOSINOPHILS PERCENT AUTO 2 % (0-6); Hematocrit 38.1 % (33.0-51.0); Hemoglobin 12.7 g/dL (11.5-16.0); IMMATURE GRAN ABSOLUTE AUTO 0.01 K/mm3 (0.00-0.10); IMMATURE GRAN PERCENT AUTO 0 % (0-1); LYMPHOCYTES ABSOLUTE AUTO 2.43 K/mm3 (0.84-5.20); LYMPHOCYTES PERCENT AUTO 33 % (21-46); MONOCYTES ABSOLUTE AUTO 0.24 K/mm3 (0.16-1.47); MONOCYTES PERCENT AUTO 3 % (4-13); Mean Corpuscular HGB 30.1 pg (26.0-34.0); Mean Corpuscular HGB Conc 33.3 g/dL (31.5-36.5); Mean Corpuscular Volume 90 fL (80-100); Mean Platelet Volume 10.5 fL (9.1-12.4); NEUTROPHILS ABSOLUTE AUTO 4.43 K/mm3 (1.96-9.15); NEUTROPHILS PERCENT AUTO 61 % (41-73); Platelet Count 165 K/mm3 (150-400); RDW Standard Deviation 49.2 fL (35.1-46.3); Red Blood Cell Count 4.22 M/mm3 (3.80-5.20)
[2025-01-29 12:48] LABS: International Normalized Ratio 1.03
[2025-01-29 12:53] LABS: Albumin, Blood 3.6 g/dL (3.4-5.0); Albumin/Globulin Ratio 1.1 (0.8-1.8); Bilirubin, Total 1.2 mg/dL (0.1-1.0); Bun/Creatinine Ratio 23.6 (12.0-20.0); Calcium, Blood 9.1 mg/dL (8.5-10.1); Creatinine, Blood 0.68 mg/dL (0.40-1.00); Globulin, Blood 3.3 g/dL (2.2-4.0); Potassium, Blood 3.8 mmol/L (3.5-5.5); Total Protein, Blood 6.9 g/dL (6.4-8.2)
[2025-01-29] MEDS ORDERED: Morphine Sulfate IR 15 MG Tab PO ONE (15:25)
[2025-01-29] MEDS ORDERED: Furosemide 10 MG / ML 2ML Vial IV ONE (16:25)
[2025-01-29] MEDS ORDERED: AmLODIPine Besylate 5 MG Tab PO ONE (16:35)
[2025-01-29] MEDS ORDERED: MORP15ER PO (16:36)
[2025-01-29 16:50] VITALS: BP 206/95
== END 2025-01-29 17:08 | disposition home or self-care (01) ==
LOC: ER 12:00
PROVIDERS: Student in an Organized Health Care Education/Training Program
DX: J81.1 Chronic pulmonary edema (principal); J90 Pleural effusion, not elsewhere classified; I12.9 Hypertensive chronic kidney disease with stage 1 through stage 4 chronic kidney disease, or unspecified chronic kidney disease; N18.9 Chronic kidney disease, unspecified; E03.9 Hypothyroidism, unspecified; F31.9 Bipolar disorder, unspecified; E78.5 Hyperlipidemia, unspecified; Z88.2 Allergy status to sulfonamides; Z88.8 Allergy status to other drugs, medicaments and biological substances; Z91.014 Allergy to mammalian meats; Z88.5 Allergy status to narcotic agent; Z88.6 Allergy status to analgesic agent; Z79.890 Hormone replacement therapy; Z79.899 Other long term (current) drug therapy; Z79.82 Long term (current) use of aspirin
CPT/HCPCS: 71260; 80053; 83880; 84484; 85025; 85610; 85730; 93005; 93010; 96374-59; 96375-59; 99285-25; A9270; C1751; J1200; J1940; J2919; Q9967

== ENCOUNTER 2025-09-27 16:19 | Inpatient (IN) | payer MEDICARE, BC ==
[~2025-09-27] VITALS: Ht 142.2 cm; Wt 57.8 kg
[2025-09-27] MEDS ORDERED: Pantoprazole Sodium 40 MG Injection IV ONE (18:10)
[2025-09-27] MEDS ORDERED: FentaNYL Citrate 50 MCG/ML 2 ML Injection IV ONE (18:10)
[2025-09-27] MEDS ORDERED: Metoclopramide HCl 5MG / ML 2ML Vial IV ONE (18:10)
[2025-09-27] MEDS ORDERED: NS 1,000 ML IV SCH ×3 (18:10→23:30)
[2025-09-27 18:39] LABS: BASOPHILS ABSOLUTE AUTO 0.06 K/mm3 (0.00-0.23); BASOPHILS PERCENT AUTO 1 % (0-2); EOSINOPHILS ABSOLUTE AUTO 0.00 K/mm3 (0.00-0.68); EOSINOPHILS PERCENT AUTO 0 % (0-6); Hematocrit 41.6 % (33.0-51.0); Hemoglobin 14.1 g/dL (11.5-16.0); IMMATURE GRAN ABSOLUTE AUTO 0.03 K/mm3 (0.00-0.10); IMMATURE GRAN PERCENT AUTO 0 % (0-1); LYMPHOCYTES ABSOLUTE AUTO 1.25 K/mm3 (0.84-5.20); LYMPHOCYTES PERCENT AUTO 10 % (21-46); MONOCYTES ABSOLUTE AUTO 0.51 K/mm3 (0.16-1.47); MONOCYTES PERCENT AUTO 4 % (4-13); Mean Corpuscular HGB Conc 33.9 g/dL (31.5-36.5); Mean Corpuscular Volume 89 fL (80-100); NEUTROPHILS ABSOLUTE AUTO 10.14 K/mm3 (1.96-9.15); NEUTROPHILS PERCENT AUTO 85 % (41-73); NRBC ABSOLUTE 0.00 K/mm3 (0.00-0.02); NRBC Auto 0.0 /100 WBC (0.0-0.2); Platelet Count 204 K/mm3 (150-400); RDW Coefficient Variation 13.9 % (11.7-14.2); RDW Standard Deviation 45.1 fL (35.1-46.3)
[2025-09-27] MEDS ORDERED: Morphine Sulfate 10 MG/ML 1MLSYR IV ONE (20:10)
[2025-09-27] MEDS ORDERED: Labetalol HCL 5 MG/ML 4ML Injection (Single Dose) IV ONE ×2 (20:15→22:40)
[2025-09-27] MEDS ORDERED: DiphenhydrAMINE HCl 50 MG/ML 1ML Vial IV ONE (21:00)
[2025-09-27 21:11] LABS: Alanine Aminotransfer (ALT/SGP 37.0 U/L (12-78); Albumin, Blood 4.5 g/dL (3.4-5.0); Albumin/Globulin Ratio 1.2 (0.8-1.8); Anion Gap 15.0 mmol/L (3-11); Aspartate Aminotrans (AST/SGOT 53.0 U/L (12-37); Bilirubin, Total 1.5 mg/dL (0.1-1.0); Blood Urea Nitrogen 14.0 mg/dL (8-24); CO2, Blood 19.0 mmol/L (21-32); Calcium, Blood 10.2 mg/dL (8.5-10.1); Chloride, Blood 109.0 mmol/L (98-108); Creatinine, Blood 0.94 mg/dL (0.40-1.00); Globulin, Blood 3.8 g/dL (2.2-4.0); Glucose, Blood 173.0 mg/dL (70-99); Potassium, Blood 3.3 mmol/L (3.5-5.5); Sodium, Blood 140.0 mmol/L (136-145); Total Protein, Blood 8.3 g/dL (6.4-8.2)
[2025-09-27] MEDS ORDERED: Potassium Chl 20MEQ/Water100ML 100 ML IV ONE (22:45)
[2025-09-27] MEDS ORDERED: HydrALAZINE HCl 20 MG / ML 1ML Vial IV PRN (23:20)
[2025-09-27 23:24] LABS: pH Blood Venous 7.44 (7.34-7.37)
[2025-09-28] VITALS (51 sets, daily range): BP systolic 132–207; BP diastolic 43–149
[2025-09-28] MEDS ORDERED: FLU VACC TS2025(65UP)/MF59C/PF 45 MCG/0.5 ML SYRINGE IM SCH (00:15)
[2025-09-28] MEDS ORDERED: HydrALAZINE HCl 20 MG / ML 1ML Vial IV ONE (01:20)
[2025-09-28] MEDS ORDERED: NiCARdipine HCL 50 MG in NS 250 ML IV SCH (02:50)
[2025-09-28 04:49] LABS: BASOPHILS ABSOLUTE AUTO 0.02 K/mm3 (0.00-0.23); BASOPHILS PERCENT AUTO 0 % (0-2); EOSINOPHILS ABSOLUTE AUTO 0.00 K/mm3 (0.00-0.68); EOSINOPHILS PERCENT AUTO 0 % (0-6); Hematocrit 34.3 % (33.0-51.0); Hemoglobin 12.1 g/dL (11.5-16.0); IMMATURE GRAN ABSOLUTE AUTO 0.02 K/mm3 (0.00-0.10); IMMATURE GRAN PERCENT AUTO 0 % (0-1); LYMPHOCYTES ABSOLUTE AUTO 0.99 K/mm3 (0.84-5.20); LYMPHOCYTES PERCENT AUTO 12 % (21-46); MONOCYTES ABSOLUTE AUTO 0.07 K/mm3 (0.16-1.47); MONOCYTES PERCENT AUTO 1 % (4-13); Mean Corpuscular HGB Conc 35.3 g/dL (31.5-36.5); Mean Corpuscular Volume 87 fL (80-100); NEUTROPHILS ABSOLUTE AUTO 7.28 K/mm3 (1.96-9.15); NEUTROPHILS PERCENT AUTO 87 % (41-73); NRBC ABSOLUTE 0.00 K/mm3 (0.00-0.02); NRBC Auto 0.0 /100 WBC (0.0-0.2); Platelet Count 188 K/mm3 (150-400); RDW Coefficient Variation 14.1 % (11.7-14.2); RDW Standard Deviation 44.9 fL (35.1-46.3)
[2025-09-28] MEDS ORDERED: Pantoprazole Sodium 40 MG Injection IV SCH (05:00)
[2025-09-28] MEDS ORDERED: FentaNYL Citrate 50 MCG/ML 2 ML Injection IV PRN ×2 (05:00→15:25)
--- NOTE | 2025-09-28 05:21 | NUR ---
SHIFT SUMMARY PT A/OX4, MAKING NEEDS KNOWN. SINUS TACH ON MONITOR, SBP 150'S, NICARDIPINE AT 1.5MG/HR. REMAINED ON ROOM AIR ALL NIGHT. GETS UP TO BSC WITH MINIMAL ASSIST. GOOD UOP. NO BM THIS SHIFT. NEW POWERGLIDE PLACED, DRAWS BACK. NO ACUTE EVENTS THIS SHIFT. CALL LIGHT IN REACH.
[2025-09-28 06:39] LABS: Alanine Aminotransfer (ALT/SGP 26.0 U/L (12-78); Albumin, Blood 3.2 g/dL (3.4-5.0); Albumin/Globulin Ratio 0.9 (0.8-1.8); Anion Gap 11.0 mmol/L (3-11); Aspartate Aminotrans (AST/SGOT 39.0 U/L (12-37); Bilirubin, Total 0.9 mg/dL (0.1-1.0); Blood Urea Nitrogen 10.0 mg/dL (8-24); CO2, Blood 16.0 mmol/L (21-32); Calcium, Blood 8.3 mg/dL (8.5-10.1); Chloride, Blood 120.0 mmol/L (98-108); Creatinine, Blood 0.63 mg/dL (0.40-1.00); Globulin, Blood 3.5 g/dL (2.2-4.0); Glucose, Blood 175.0 mg/dL (70-99); Potassium, Blood 2.7 mmol/L (3.5-5.5); Sodium, Blood 144.0 mmol/L (136-145); Total Protein, Blood 6.7 g/dL (6.4-8.2)
[2025-09-28] MEDS ORDERED: Enoxaparin 40 MG/0.4 ML SYR SC SCH (09:00)
[2025-09-28] MEDS ORDERED: Lactobacil 2-S.Thermo-Bifido 1 1 Cap PO SCH (09:00)
[2025-09-28] MEDS ORDERED: Amylase/Lipase/Protease DR Cap 12,000 PO SCH (16:30)
--- NOTE | 2025-09-28 18:25 | NUR ---
Patient continues care in the ICU for hypertensive emergency. Morning PO Cozaar given and nicardipine infusion subsequently turned off. Patient required one PRN dose of hydralazine IVP for a SBP of 187, however, patient did not require nicardipine infusion restarted. Patient complained of epigastric pain throughout the day which is chronic due to her pancreatitis. She receives PRN pain meds for that. See MAR for all aforementioned pharmaceutical interventions. Patient seem to remain in good spirits throughout the day. was at bedside today.
--- NOTE | 2025-09-28 20:38 | NUR ---
ASSUMPTION OF CARE/ASSESSMENT: ASSUMED CARE OF PT AT 1900; BEDSIDE SHIFT REPORT RECIEVED FROM PRETTY MCKENNA. PT A&O X 4, PLEASANT AND COOPERATIVE WITH CARE. PT ON RA, LUNGS CLEAR, DENIES SOB AND SPO2 94<. PT HAVING INTERMITTEN PANIC/ANXIETY ATTACKS WHERE SHE IS ATTEMPTING TO GET OUT OF BED AND AUDITORY WHEEZES HEARD. PT REMAINS SPO2 94<; PRN BREATHING TX PER EMAR. ST ON MONITOR WITH HR 110'S, SBP 160-170, DENIES CHEST PAIN/PRESSURE; PRN HYDRALAZINE PER EMAR. PT IS NPO; ATTEMPTING BEDSIDE SWALLOW EVAL WITH SPOONFULS OF WATER BUT WATER JUST FALLS OUT OF PT'S MOUTH. ORAL CARE PERFORMED. HERRON CATHETER PATENT AND DRAINING TO GRAVITY; URINE YELLOW, FOUL SMELLING AND OLIGURIA NOTED. DR. YOUSIF UPDATED REGARDING OLIGURIA BY MARK MCKENNA. PG TO JAS PATENT AND SALINE LOCKED. PIV TO LAC PATENT AND SALING LOCKED. PT'S AT BEDSIDE AND LEFT SHORTLY AFTER SHIFT CHANGE. BED LOWERED, CALL LIGHT IN REACH.
--- NOTE | 2025-09-28 21:34 | NUR ---
ASSUMPTION OF CARE/ASSESSMENT: ASSUMED CARE OF PT AT 1900; BEDSIDE SHIFT REPORT RECIEVED FROM PRETTY MCKENNA. PT A&O X 4, PLEASANT AND COOPERATIVE WITH CARE. PT ON RA, LUNGS CLEAR, DENIES SOB AND SPO2 94<. ST ON MONITOR WITH HR 110'S, SBP 160-170, DENIES CHEST PAIN/PRESSURE AND PRN HYDALAZINE PER EMAR. PT TOLERATES PO INTAKE, DECREASED APPETITE AND SOME LUQ/EPIGASTRIC PAIN. PT USING BEDSIDE COMMODE FOR VOIDING, NO BM. PT ABLE TO REPOSITION SELF IN BED. USING CALL LIGHT APPROPRIATELY AND ABLE TO MAKE NEEDS KNOWN. BED LOWERED, CALL LIGHT IN REACH.
[2025-09-29] VITALS (62 sets, daily range): BP systolic 66–159; BP diastolic 32–83
[2025-09-29 05:48] LABS: BASOPHILS ABSOLUTE AUTO 0.07 K/mm3 (0.00-0.23); BASOPHILS PERCENT AUTO 0 % (0-2); EOSINOPHILS ABSOLUTE AUTO 0.04 K/mm3 (0.00-0.68); EOSINOPHILS PERCENT AUTO 0 % (0-6); Hematocrit 39.4 % (33.0-51.0); Hemoglobin 13.5 g/dL (11.5-16.0); Mean Corpuscular HGB Conc 34.3 g/dL (31.5-36.5); Mean Corpuscular Volume 89 fL (80-100); NRBC ABSOLUTE 0.00 K/mm3 (0.00-0.02); NRBC Auto 0.0 /100 WBC (0.0-0.2); Platelet Count 286 K/mm3 (150-400); RDW Coefficient Variation 14.8 % (11.7-14.2); RDW Standard Deviation 48.5 fL (35.1-46.3)
[2025-09-29 05:51] LABS: IMMATURE GRAN ABSOLUTE AUTO 0.09 K/mm3 (0.00-0.10); IMMATURE GRAN PERCENT AUTO 0 % (0-1); LYMPHOCYTES ABSOLUTE AUTO 6.73 K/mm3 (0.84-5.20); LYMPHOCYTES PERCENT AUTO 30 % (21-46); MONOCYTES ABSOLUTE AUTO 1.32 K/mm3 (0.16-1.47); MONOCYTES PERCENT AUTO 6 % (4-13); NEUTROPHILS ABSOLUTE AUTO 14.24 K/mm3 (1.96-9.15); NEUTROPHILS PERCENT AUTO 63 % (41-73)
--- NOTE | 2025-09-29 06:05 | NUR ---
SHIFT ASSESSMENT: NO ACUTE CHANGES OVERNIGHT. PT HAD ONE EPISODE OF SBP > 180; PRN HYDRALAZINE ADMINISTERED WITH GOOD EFFECT. PT -06/09- LUQ/EPIGASTRIC PAIN THROUGHOUT THE SHIFT. PRN FENTANYL AND MORPHINE GIVEN WITH GOOD EFFECT. MORNING LABS PENDING. PT ABLE TO MAKE NEEDS KNOWN.
[2025-09-29 06:06] LABS: Magnesium, Blood 1.8 mg/dL (1.6-2.4)
[2025-09-29 06:07] LABS: Alanine Aminotransfer (ALT/SGP 38.0 U/L (12-78); Albumin, Blood 3.5 g/dL (3.4-5.0); Albumin/Globulin Ratio 0.9 (0.8-1.8); Anion Gap 10.0 mmol/L (3-11); Aspartate Aminotrans (AST/SGOT 66.0 U/L (12-37); Bilirubin, Total 1.0 mg/dL (0.1-1.0); Blood Urea Nitrogen 12.0 mg/dL (8-24); CO2, Blood 23.0 mmol/L (21-32); Calcium, Blood 8.6 mg/dL (8.5-10.1); Chloride, Blood 109.0 mmol/L (98-108); Creatinine, Blood 0.76 mg/dL (0.40-1.00); Globulin, Blood 3.7 g/dL (2.2-4.0); Glucose, Blood 132.0 mg/dL (70-99); Phosphorus, Blood 2.7 mg/dL (2.5-4.9); Potassium, Blood 3.4 mmol/L (3.5-5.5); Sodium, Blood 139.0 mmol/L (136-145); Total Protein, Blood 7.2 g/dL (6.4-8.2)
--- NOTE | 2025-09-29 09:53 | NUR ---
CONSULTATION RECIEVED. PATIENT CHART REVIEWED. SHE WAS ADMITED FOR HTN EMERGENCY REVIEWED MEDICATIONS. PATIENTS CURRENT BP IS 135/55
--- NOTE | 2025-09-29 14:01 | NUR ---
Spiritual Care Visit. Pt. is awake in bed when she welcomes my visit. Pt. is pleasant. Spouse is at bedside. Facilitated a life review and listened with emptahy and interest. COnsidered matetrs of lois and belief. Pt. displayed evidence of being responsive and engaged. Prayed fo rthe Pt. Pt. and spouse both verbalized gratitude for the spiritual care visit.
[2025-09-29] MEDS ORDERED: Naloxone HCl 0.4MG / ML 1ML Vial ONE (14:58)
[2025-09-29] MEDS ORDERED: NS 1,000 ML IV ONE ×3 (15:07→17:50)
[2025-09-29 15:36] LABS: Hematocrit 32.7 % (33.0-51.0); Hemoglobin 10.9 g/dL (11.5-16.0); Mean Corpuscular HGB Conc 33.3 g/dL (31.5-36.5); Mean Corpuscular Volume 91 fL (80-100); NRBC ABSOLUTE 0.00 K/mm3 (0.00-0.02); NRBC Auto 0.0 /100 WBC (0.0-0.2); Platelet Count 185 K/mm3 (150-400); RDW Coefficient Variation 14.8 % (11.7-14.2); RDW Standard Deviation 48.9 fL (35.1-46.3)
[2025-09-29 15:58] LABS: Alanine Aminotransfer (ALT/SGP 30.0 U/L (12-78); Albumin, Blood 2.7 g/dL (3.4-5.0); Albumin/Globulin Ratio 1.0 (0.8-1.8); Anion Gap 7.0 mmol/L (3-11); Aspartate Aminotrans (AST/SGOT 48.0 U/L (12-37); BASOPHILS ABSOLUTE MAN 0.00 K/mm3 (0.00-0.23); BASOPHILS PERCENT MAN 0 % (0-2); Bilirubin, Total 0.7 mg/dL (0.1-1.0); Blood Urea Nitrogen 12.0 mg/dL (8-24); CO2, Blood 23.0 mmol/L (21-32); Calcium, Blood 7.6 mg/dL (8.5-10.1); Chloride, Blood 112.0 mmol/L (98-108); Creatinine, Blood 0.84 mg/dL (0.40-1.00); EOSINOPHILS ABSOLUTE MAN 0.15 K/mm3 (0.00-0.68); EOSINOPHILS PERCENT MAN 1 % (0-6); Globulin, Blood 2.6 g/dL (2.2-4.0); Glucose, Blood 105.0 mg/dL (70-99); LYMPHOCYTES ABSOLUTE MAN 4.68 K/mm3 (0.84-5.20); LYMPHOCYTES PERCENT MAN 31 % (21-46); MONOCYTES ABSOLUTE MAN 0.45 K/mm3 (0.16-1.47); MONOCYTES PERCENT MAN 3 % (4-13); NEUTROPHILS ABSOLUTE MAN 9.81 K/mm3 (1.96-9.15); Potassium, Blood 3.4 mmol/L (3.5-5.5); SEG NEUTROPHILS PERCENT MAN 65 % (41-73); Sodium, Blood 139.0 mmol/L (136-145); Total Protein, Blood 5.3 g/dL (6.4-8.2)
[2025-09-29 19:22] LABS: Hematocrit 35.7 % (33.0-51.0); Hemoglobin 11.5 g/dL (11.5-16.0)
--- NOTE | 2025-09-29 19:46 | NUR ---
ASSUME CARE: BEDSIDE REPORT RECIEVED FROM DAYSTXFT RN. PT A/OX4 AND ABLE TO MAKE NEEDS KNOWN, AT BEDSIDE. SBP 140s, MAP>65. PT ON LEVOPHED GTT, SEE FLOWSHEET FOR TITRATIONS. NS BOLUS INFUSING, REPORT RECIEVED THAT PT HAS RECIEVED 2L NS BOLUS TOTAL FOR HYPOTENSION. MONITOR SHOWS SINUS RYTHM, RATE 70-80s. SPO2>90% ON RA. PT DENIES CP OR PRESSURE. PT COMPLAINS OF PAIN, MEDICATED PER EMAR. CALL LIGHT IN REACH. WILL UPDATE NEEDED.
[2025-09-30] VITALS (56 sets, daily range): BP systolic 81–192; BP diastolic 38–133
[2025-09-30 03:51] LABS: BASOPHILS ABSOLUTE AUTO 0.05 K/mm3 (0.00-0.23); BASOPHILS PERCENT AUTO 1 % (0-2); EOSINOPHILS ABSOLUTE AUTO 0.15 K/mm3 (0.00-0.68); EOSINOPHILS PERCENT AUTO 2 % (0-6); Hematocrit 33.8 % (33.0-51.0); Hemoglobin 11.1 g/dL (11.5-16.0); IMMATURE GRAN ABSOLUTE AUTO 0.02 K/mm3 (0.00-0.10); IMMATURE GRAN PERCENT AUTO 0 % (0-1); LYMPHOCYTES ABSOLUTE AUTO 3.46 K/mm3 (0.84-5.20); LYMPHOCYTES PERCENT AUTO 40 % (21-46); MONOCYTES ABSOLUTE AUTO 0.57 K/mm3 (0.16-1.47); MONOCYTES PERCENT AUTO 7 % (4-13); Mean Corpuscular HGB Conc 32.8 g/dL (31.5-36.5); Mean Corpuscular Volume 91 fL (80-100); NEUTROPHILS ABSOLUTE AUTO 4.38 K/mm3 (1.96-9.15); NEUTROPHILS PERCENT AUTO 51 % (41-73); NRBC ABSOLUTE 0.00 K/mm3 (0.00-0.02); NRBC Auto 0.0 /100 WBC (0.0-0.2); Platelet Count 165 K/mm3 (150-400); RDW Coefficient Variation 14.8 % (11.7-14.2); RDW Standard Deviation 49.5 fL (35.1-46.3)
[2025-09-30 04:08] LABS: Anion Gap 10.0 mmol/L (3-11); Blood Urea Nitrogen 10.0 mg/dL (8-24); CO2, Blood 22.0 mmol/L (21-32); Calcium, Blood 7.6 mg/dL (8.5-10.1); Chloride, Blood 113.0 mmol/L (98-108); Creatinine, Blood 0.71 mg/dL (0.40-1.00); Glucose, Blood 148.0 mg/dL (70-99); Potassium, Blood 3.6 mmol/L (3.5-5.5); Sodium, Blood 141.0 mmol/L (136-145)
--- NOTE | 2025-09-30 05:27 | NUR ---
SHIFT SUMMARY: PT A/Ox4 AND ABLE TO MAKE NEEDS KNOWN. LEVOPHED OFF AT 2130, SBP 140-180s, MAP>65. MONITOR SHOW SINUS RYTHM TO SINUS TACH, RATE 80-100s. PT DENIES CP OR PRESSURE. SPO2>90% ON RA. PT COMPLAINS OF EPIGASTRIC PAIN, RADIATING TO HER BACK, MEDICATED PER EMAR. PT NAUSEA IMPROVED LAST NIGHT, REQUESTING MULTIPLE SNACKS AND BEVERAGES. NAUSEA RETURNED THIS AM, MEDICATED PER EMAR. PT ABLE TO GET UP TO BSC WITH MINIMAL ASSISTANCE. WILL REPORT TO ONCOMING RN.
[2025-09-30] MEDS ORDERED: NS 250 ML IV PRN (17:30)
--- NOTE | 2025-09-30 18:28 | NUR ---
SHIFT SUMMARY NEURO: ALERT AND ORIENTED X4. CALLS APPROPRIATELY AND ABLE TO MAKE HER NEEDS KNOWN. MOVES ALL EXTREMITIES WELL. CARDIAC: HTN THIS AM/AFTERNOON SBP 140-160S. HR 90-110S. THIS AFTERNOON SBP REDUCED TO 100S MAP >65 AND HR 60S. ENCOURAGED PO FLUID INTAKE. PULM: LUNGS CLEAR TO AUSCULATION. SPO2 >98% ON RA. NOTED SOME MILD SLEEP APNEA AFTER TAKING TIZANIDINE. GI: +EPIGASTRIC PAIN. PRN PAIN MEDICATIONS AND NAUSEA/INDIGESTION MEDICATIONS USED TO MANAGE PAIN. REDUCED APPETITE. SOME NAUSEA, NO EMESIS. : PT UP TO BSC, URINE YELLOW. SKIN: INTACT SOME MILD SWELLING OF R HAND. ELEVATED ON PILLOW TODAY. UP TO THE CHAIR FOR DINNER. DAUGHTER AND INTO VISIT.
--- NOTE | 2025-09-30 19:30 | NUR ---
ASSUMPTION OF CARE ASSUMED CARE OF PT APPROX 1900. PT IS A/0 X4, ANSWERS QUESTIONS APPROPRIATELY, USES CALL LIGHT AND CAN MAKE NEEDS KNOWN. PT IS ABLE TO USE BSC WITH SB ASSIST. HEART RATE IS SINUS ON MONITOR WITH RATE IN THE 70S, BP STABLE WITH SYSTOLIC 120S AND MAP >65. DENIES CP OR SOB, ENDORSES EPIGASTRIC PN, PT WITH CHRONIC BOUTS OF PANCREATITIS. AT BESIDE AT THIS TIME. DENIES UNMET NEEDS AT THIS TIME, CALL LIGHT WITHIN REACH.
[2025-09-30] MEDS ORDERED: NS 500 ML IV ONE (23:40)
[2025-10-01] VITALS (82 sets, daily range): BP systolic 88–202; BP diastolic 40–149
[2025-10-01 05:24] LABS: BASOPHILS ABSOLUTE AUTO 0.04 K/mm3 (0.00-0.23); BASOPHILS PERCENT AUTO 1 % (0-2); EOSINOPHILS ABSOLUTE AUTO 0.21 K/mm3 (0.00-0.68); EOSINOPHILS PERCENT AUTO 3 % (0-6); Hematocrit 33.2 % (33.0-51.0); Hemoglobin 11.0 g/dL (11.5-16.0); IMMATURE GRAN ABSOLUTE AUTO 0.01 K/mm3 (0.00-0.10); IMMATURE GRAN PERCENT AUTO 0 % (0-1); LYMPHOCYTES ABSOLUTE AUTO 3.07 K/mm3 (0.84-5.20); LYMPHOCYTES PERCENT AUTO 50 % (21-46); MONOCYTES ABSOLUTE AUTO 0.41 K/mm3 (0.16-1.47); MONOCYTES PERCENT AUTO 7 % (4-13); Mean Corpuscular HGB Conc 33.1 g/dL (31.5-36.5); Mean Corpuscular Volume 91 fL (80-100); NEUTROPHILS ABSOLUTE AUTO 2.46 K/mm3 (1.96-9.15); NEUTROPHILS PERCENT AUTO 40 % (41-73); NRBC ABSOLUTE 0.00 K/mm3 (0.00-0.02); NRBC Auto 0.0 /100 WBC (0.0-0.2); Platelet Count 148 K/mm3 (150-400); RDW Coefficient Variation 14.6 % (11.7-14.2); RDW Standard Deviation 48.7 fL (35.1-46.3)
[2025-10-01 05:49] LABS: Magnesium, Blood 1.8 mg/dL (1.6-2.4)
[2025-10-01 05:50] LABS: Alanine Aminotransfer (ALT/SGP 34.0 U/L (12-78); Albumin, Blood 2.9 g/dL (3.4-5.0); Albumin/Globulin Ratio 1.0 (0.8-1.8); Anion Gap 7.0 mmol/L (3-11); Aspartate Aminotrans (AST/SGOT 42.0 U/L (12-37); Bilirubin, Total 0.7 mg/dL (0.1-1.0); Blood Urea Nitrogen 8.0 mg/dL (8-24); CO2, Blood 24.0 mmol/L (21-32); Calcium, Blood 8.1 mg/dL (8.5-10.1); Chloride, Blood 113.0 mmol/L (98-108); Creatinine, Blood 0.73 mg/dL (0.40-1.00); Globulin, Blood 2.8 g/dL (2.2-4.0); Glucose, Blood 94.0 mg/dL (70-99); Phosphorus, Blood 3.0 mg/dL (2.5-4.9); Potassium, Blood 4.0 mmol/L (3.5-5.5); Sodium, Blood 140.0 mmol/L (136-145); Total Protein, Blood 5.7 g/dL (6.4-8.2)
--- NOTE | 2025-10-01 05:50 | NUR ---
SHIFT SUMMARY PT A/OX4, CALLS APPROPRIATLY. ON ROOM AIR, SATS > 94%, L/S CLEAR. PT WAS STARTED ON LOW DOSE LEVO FOR BETWEEN 4-5 HOURS R/T MAPS DROPPING INTO 50'S. GAVE 500ML BOLUS OF NS WELL. LEVO OFF NOW AND MAPS MAINTAINING > 65. TOLERATING PO INTAKE. UP TO BSC WITH SBA FOR CORDS. PAIN MANAGED PER EMAR. CALL LIGHT IN REACH.
--- NOTE | 2025-10-01 07:20 | NUR ---
ASSUMPTION OF CARE RECIEVED BEDSIDE REPORT FROM MARNIE MCKENNA. PT RESTING IN BED aubree JACOBS PROPPED ON PILLOW. PT ATTENTION DIRECTED TOWARD AT BEDSIDE. RESPONDS TO QUESTIONS APPROPRAITELY. SPO2 >95% ON RA. HR 90s, MAP >65. PT ENDORSES "PANCREAS" PAIN 05/18. NO NEEDS STATED AT THIS TIME, CALL LIGHT IN REACH.
[2025-10-01 08:40] LABS: Thyroid Stimulating Hormone 4.19 uIU/mL (0.360-4.800)
[2025-10-01] MEDS ORDERED: Miconazole Nitrate 2% 85 GM PWD TOP PRN (13:05)
--- NOTE | 2025-10-01 18:38 | NUR ---
SHIFT SUMMARY A&O x4, COOPERATIVE c CARE. SPO2 >95% ON RA. HR 90-110s, MAP >65, SBP 130-200s, ONE DOSE OF PRN HYDRALAZINE GIVEN PER EMAR. PT REPORTS NAUSEA c MIN RELIEF c ZOFRAN PER EMAR; NO EMESIS. PO INTAKE DECREASED R/T PT REPORT OF LIMITED FOOD OPTIONS. PT REPORTS PAIN CONSISTENTLY >6/10, REPORTS BASELINE "PANCREAS" PAIN 4/10. PT REPORTS BETTER PAIN RELIEF c PO IMMEDIATE RELEASE MORPHIENE COMPARED TO IV FENTANYL. PT VOIDING, CURRENT 24 HOUR URINE COLLECTION IN PROGRESS. AMB SBA TO BSC. NO BM TODAY, PASSING FLATUS. AT BEDSIDE THROUGHOUT THE DAY, INVOLVED c CARE. CALL LIGHT IN REACH, REPORT TO BE GIVEN TO DEVI MCKENNA.
[2025-10-01] MEDS ORDERED: PREMARIN0.45 MG PO (20:54)
[2025-10-01] MEDS ORDERED: LOSA25 (20:56)
[2025-10-01] MEDS ORDERED: ESTROGENS CONJUGATED 0.9 MG PO SCH (21:30)
--- NOTE | 2025-10-01 21:41 | NUR ---
ASSUMPTION OF CARE: ASSUMED CARE AT START OF SHIFT (1899). REPORT RECEIVED FROM DAY SHIFT RN. PT IS DOING WELL AND RESTING IN BED. PT IS ALERT AND FOLLOWING COMMANDS. PT STATES HAVING 7/10 ABD PAIN BUT NO CP OR SOB AT THIS TIME. PT IS RECEIVEING PAIN MEDS PER EMR ORDERS. LUNG SOUNDS ARE CLEAR AND EQUAL BILATERALLY, ON RA WITH SPO2 >95%. SINUS RYTHM WITH SBP: 150-170'S MAP >65 HR: 90'S. IV: POWERGLIDE IN RUE AND PERIPHERAL IN R FOREARM. PT IS ABLE TO STAND AND USE BEDSIDE COMMODE WITH MINIMAL ASSIST. LINES AND CORDS PLACED OUT OF REACH. CALL LIGHT PLACED WITHIN REACH.
[2025-10-02] VITALS (61 sets, daily range): BP systolic 104–211; BP diastolic 49–92
[2025-10-02 04:01] LABS: BASOPHILS ABSOLUTE AUTO 0.05 K/mm3 (0.00-0.23); BASOPHILS PERCENT AUTO 1 % (0-2); EOSINOPHILS ABSOLUTE AUTO 0.27 K/mm3 (0.00-0.68); EOSINOPHILS PERCENT AUTO 3 % (0-6); Hematocrit 36.0 % (33.0-51.0); Hemoglobin 12.1 g/dL (11.5-16.0); IMMATURE GRAN ABSOLUTE AUTO 0.02 K/mm3 (0.00-0.10); IMMATURE GRAN PERCENT AUTO 0 % (0-1); LYMPHOCYTES ABSOLUTE AUTO 3.12 K/mm3 (0.84-5.20); LYMPHOCYTES PERCENT AUTO 40 % (21-46); MONOCYTES ABSOLUTE AUTO 0.58 K/mm3 (0.16-1.47); MONOCYTES PERCENT AUTO 7 % (4-13); Mean Corpuscular HGB Conc 33.6 g/dL (31.5-36.5); Mean Corpuscular Volume 89 fL (80-100); NEUTROPHILS ABSOLUTE AUTO 3.82 K/mm3 (1.96-9.15); NEUTROPHILS PERCENT AUTO 49 % (41-73); NRBC ABSOLUTE 0.00 K/mm3 (0.00-0.02); NRBC Auto 0.0 /100 WBC (0.0-0.2); Platelet Count 174 K/mm3 (150-400); RDW Coefficient Variation 14.3 % (11.7-14.2); RDW Standard Deviation 45.7 fL (35.1-46.3)
[2025-10-02 04:49] LABS: Alanine Aminotransfer (ALT/SGP 39.0 U/L (12-78); Albumin, Blood 3.2 g/dL (3.4-5.0); Albumin/Globulin Ratio 0.9 (0.8-1.8); Anion Gap 8.0 mmol/L (3-11); Aspartate Aminotrans (AST/SGOT 78.0 U/L (12-37); Bilirubin, Total 0.9 mg/dL (0.1-1.0); Blood Urea Nitrogen 7.0 mg/dL (8-24); CO2, Blood 28.0 mmol/L (21-32); Calcium, Blood 8.6 mg/dL (8.5-10.1); Chloride, Blood 107.0 mmol/L (98-108); Creatinine, Blood 0.61 mg/dL (0.40-1.00); Globulin, Blood 3.4 g/dL (2.2-4.0); Glucose, Blood 104.0 mg/dL (70-99); Potassium, Blood 4.9 mmol/L (3.5-5.5); Sodium, Blood 138.0 mmol/L (136-145); Total Protein, Blood 6.6 g/dL (6.4-8.2)
--- NOTE | 2025-10-02 06:29 | NUR ---
SHIFT SUMMARY: PT IS DOING WELL AND RESTING IN BED. PT IS ALERT AND FOLLOWING COMMANDS. NO ACUTE CHANGES THROUGHOUT THE SHIFT. PT CONTINUES TO HAVE ABDOMINAL PAIN AND IS RECEIVING PAIN MEDS PER EMR ORDERS. VITAL SIGNS REAMIN STABLE. PT WAS ABLE TO SLEEP PART OF THE NIGHT. IV: POWERGLIDE IN LUE AND PERIPHERAL IN L WRIST. PT IS ABLE TO STAND AND USE BEDSIDE COMMODE WITH MINIMAL ASSIST. LINES AND CORDS PLACED OUT OF REACH. CALL LIGHT PLACED WITHIN REACH.
[2025-10-02 14:24] LABS: CALPROTECTIN,FECAL 67 ug/g (<=49)
[2025-10-02] MEDS ORDERED: Labetalol HCL 5 MG/ML 4ML Injection (Single Dose) IV PRN (16:05)
[2025-10-02 16:19] LABS: ALDOSTERONE 4.8 ng/dL
--- NOTE | 2025-10-02 18:18 | NUR ---
Patient's acuity improving, able to advance care to [facility]. Patient complained of chest pain that she described as feeling like heart burn. Due to onset of pain and tachycardia at the time a 12-lead was ordered as well as a troponin. Neither concerning for acute cardiac event. Pain subsequently subsided. Patient in good spirits and pleasant to interact with. Patient received dog therapy in which she enjoyed.
[2025-10-03] VITALS (27 sets, daily range): BP systolic 122–177; BP diastolic 47–132
[2025-10-03 05:14] LABS: ADRENOCORTICOTROPIC HORMONE 26.6 pg/mL (7.2-63.3)
[2025-10-03 05:17] LABS: BASOPHILS ABSOLUTE AUTO 0.05 K/mm3 (0.00-0.23); BASOPHILS PERCENT AUTO 1 % (0-2); EOSINOPHILS ABSOLUTE AUTO 0.30 K/mm3 (0.00-0.68); EOSINOPHILS PERCENT AUTO 5 % (0-6); Hematocrit 32.3 % (33.0-51.0); Hemoglobin 10.9 g/dL (11.5-16.0); IMMATURE GRAN ABSOLUTE AUTO 0.03 K/mm3 (0.00-0.10); IMMATURE GRAN PERCENT AUTO 1 % (0-1); LYMPHOCYTES ABSOLUTE AUTO 2.70 K/mm3 (0.84-5.20); LYMPHOCYTES PERCENT AUTO 41 % (21-46); MONOCYTES ABSOLUTE AUTO 0.61 K/mm3 (0.16-1.47); MONOCYTES PERCENT AUTO 9 % (4-13); Mean Corpuscular HGB Conc 33.7 g/dL (31.5-36.5); Mean Corpuscular Volume 89 fL (80-100); NEUTROPHILS ABSOLUTE AUTO 2.90 K/mm3 (1.96-9.15); NEUTROPHILS PERCENT AUTO 44 % (41-73); NRBC ABSOLUTE 0.00 K/mm3 (0.00-0.02); NRBC Auto 0.0 /100 WBC (0.0-0.2); Platelet Count 165 K/mm3 (150-400); RDW Coefficient Variation 14.1 % (11.7-14.2); RDW Standard Deviation 45.9 fL (35.1-46.3)
--- NOTE | 2025-10-03 05:21 | NUR ---
SHIFT SUMMARY PT ALERT AND ORIENTED, ABLE TO MAKE NEEDS KNOWN, AND FOLLOWS COMMANDS APPROPRIATELY. PT AFEBRILE T/O THE NIGHT. PT REMAINS ON RA WITH SPO2 >95%, NO C/O OF SOB. SBP IN THE 120-160'S WITH MAX OF 166 REQUIRING 1X DOSE OF LABETALOL, PT IN NSR AND HR IN THE 70'S, PT DENIES CHEST PAIN/PRESSURE. PT HAD MODERATE AND CONSTANT EPIGASTRIC PAIN, MEDICATED PER EMAR. BOTH POWERGLIDE AND PIV SALINE LOCKED. PT DID NOT SLEEP T/O THE NIGHT, AT BEDSIDE UNTIL 2200. CALL LIGHT WITHIN REACH, NO IMMEDIATE CONCERNS NOTED AT THIS TIME. WILL REPORT TO ONCOMING RN.
[2025-10-03 05:33] LABS: Anion Gap 8.0 mmol/L (3-11); Blood Urea Nitrogen 8.0 mg/dL (8-24); CO2, Blood 29.0 mmol/L (21-32); Calcium, Blood 8.7 mg/dL (8.5-10.1); Chloride, Blood 103.0 mmol/L (98-108); Creatinine, Blood 0.65 mg/dL (0.40-1.00); Glucose, Blood 156.0 mg/dL (70-99); Potassium, Blood 3.7 mmol/L (3.5-5.5); Sodium, Blood 136.0 mmol/L (136-145)
[2025-10-03 13:49] LABS: IGF 1 Z SCORE CALCULATION -0.7; IGF1 INSULN-LIKE GROWTH FACT 1 69.0 ng/mL (27-228)
--- NOTE | 2025-10-03 14:54 | NUR ---
Spiritual Care Visit. Pt. is awake in bed and welcomes my visit. Facilitated an update since my last visit on Thursday. Pt. verbalized an expectation that she woudl likely be discharged home tomorrow. Pt. displays evidence of improved engagement and verbalizes there is no significant pain. Considered matters of lois and belief. Spouse arrived suring the visit and welcomed this sack sorter. Prayed with the Pt. Pt. verbalized gratitude for the spiritual care visit.
--- NOTE | 2025-10-03 18:00 | NUR ---
ASSUMED CARE/END OF SHIFT SUMMARY ASSUMED CARE OF PT AT 1700. SHE IS A/O X4 AND ABLE TO MAKE HER NEEDS KNOWN. SPO2 >97% ON RA. HR 80'S. SBP 130-150'S. PT AT BEDSIDE. PT STATING NAUSEA; PRN ZOFRAN GIVEN WITH DINNER. WILL REPORT TO PM RN WHEN AVAILABLE.
[2025-10-04] VITALS (18 sets, daily range): BP systolic 90–146; BP diastolic 40–101
--- NOTE | 2025-10-04 06:35 | NUR ---
SHIFT SUMMARY: NO ACUTE CHANGES T/O THE NIGHT. PT REMAINS A&OX4 AND MAKES NEEDS KNOWN. PT AFEBRILE T/O THE NIGHT. PT REMAINS ON RA W/ SPO2>95%. DENIED ANY CHEST PAIN OR SOB. SBP STABLE, MAPS>65.PT REMAINS IN NSR. PT CONTINUES TO ENDORSE MODERATE EPIGASTRIC PAIN AND REQUIRES CONSTANT ROUND THE CLOCK PAIN REGIMEN. SEE EMAR. PT VERY VOCAL ABOUT WANTING TO KNOW PAIN REGIMEN ADMINISTRATION TIMES. PT USING BEDSIDE COMMODE W/SBA FOR CORD MANAGEMENT.PT ENDORSED ONE EPISODE OF NAUSEA THIS MORINING AND WAS GIVEN ZOFRAN PER EMAR ORDERS WITH GOOD RELIEF. PT HAS PIV IN LHAND AND JAS POWERGLIDE WHICH REMAIN SALINE LOCKED. CALL LIGHT WITHIN REACH, NO IMMEDIATE CONCERNS NOTED AT THIS TIME. THIS RN TO REPORT TO ONCOMING SHIFT. CARE CONTINUES.
--- NOTE | 2025-10-04 07:20 | NUR ---
ASSUMPTION OF CARE: ASSUMED CARE OF PATIENT. PATIENT RESTING IN BED. SHE HAS TAKEN OFF HER OXYGEN. PATIENT CURRENTLY ON 2.5L VIA NC. SP02>94%. PATIENT CALM AND COOPERATIVE WITH STAFF AND INSTRUCTIONS. PATIENT REQUESTING SOME JUICE. PATIENT SWALLOWED WITHOUT OVERT SIGNS/SYMPTOMS OF ASPIRATION. PATIENT FATIGUED AND FALLS ASLEEP EASILY. NOC RN REPORTED THAT THE PATIENT HAD MINIMAL SLEEP DURING THE NIGHT.
--- NOTE | 2025-10-04 07:20 | NUR ---
ASSUMPTION OF CARE: ASSUMED CARE OF PATIENT. PATIENT RESTING IN THE BED. SHE REPORTS THAT HER EPIGASTRIC PAIN IS COMING UP AGAIN. MEDICATED PER PRNS. PATIENT DENIES NAUSEA AT THIS TIME. PATIENT ALERT AND ORIENTED X4. PATIENT UP TO THE TOILET WITHOUT DIFFICULTY. RN ONLY NEEDED TO ASSIST WITH CORDS. PATIENT CONTINUES TO BE STABLE ON ROOM AIR WITH SPO2 >94%. SOME LOW BPS NOTED ON THE MONITOR DURING THIS MORNING WITH MAPS 63-65. BLOOD PRESSURE STABLE AT THIS TIME WITH MAPS >65. PATIENT DENIES DIZZINESS/SHORTNESS OF BREATH WITH ACTIVITY OR AT REST. PATIENT PASSING FLATUS. PATIENT TOLERATING PO INTAKE WITH SOME NAUSEA. DENIES EMESIS.
[2025-10-04 08:25] LABS: RENIN ACTIVITY 0.2 ng/mL/hr
[2025-10-04] MEDS ORDERED: ONDA4ODT MM (14:13)
[2025-10-04] MEDS ORDERED: SPIR50 PO (14:14)
--- NOTE | 2025-10-04 15:19 | NUR ---
DISCHARGE SUMMARY: THROUGHOUT THE SHIFT PATIENT ALERT AND ORIENTED X4. PATIENT ABLE TO AMBULATE AROUND THE ROOM WITHOUT ASSISTANCE. PATIENT HAD MILD NAUSEA AFTER BREAKFAST THAT WAS ALLEVIATED WITH PRN ZOFRAN. PATIENT CONTINUES TO HAVE HIGH-MODERATE EPIGASTRIC PAIN. PATIEN TOLERATING PO INTAKE WITHOUT EMESIS OR SEVERE PAIN. PAIN CONTROLLED WITH PRN MEDICATIONS. PATIENT EXPERIENCED SOME LOW BLOOD PRESSURES EARLY IN THE MORNING AND THIS AM. DR. WSET AWARE AND CHANGES TO ORDERS WERE MADE. THROUGHOUT THE REST OF THE SHIFT, BLOOD PRESSURES STABLE AND MAPS >65. PATIENT DISCHARGE RX FAXED TO [facility] PER PATIENT REQUEST. PHYSICAL SCRIPT FOR PRN MORPHINE GIVEN TO THE PATIENT. PATIENT'S HOME EYE DROP MEDICATION RETURNED TO THE PATIENT. PATIENT HAS GLASSES AND CELL PHONE. NO OTHER HOME ITEMS IDENTIFIED BY THIS RN OR THE PATIENT. DISCHARGE INSTRUCTIONS AND EDUCATION PROVIDED. PATIENT AND HER VERBALIZED UNDERSTANDING. PATIENT DISCHARGED IN WHEELCHAIR WITH THIS RN. PATIENT STABLE AT TIME OF DISCHARGE.
[2025-10-05 05:29] LABS: CREATININE,URINE - PER 24H 798 mg/d (500-1400); CREATININE,URINE - PER VOLUME 21 mg/dL; HOURS COLLECTED 24 hr; METANEPHRINE,UR - RATIO TO CRT 124 ug/g CRT (0-300); METANEPHRINE,URINE - PER 24H 99 ug/d (36-229); METANEPHRINE,URN - PER VOLUME 26 ug/L; NORMETANEPHRINE,U - PER VOLUME 267 ug/L; NORMETANEPHRINE,URN - PER 24H 1015 ug/d (95-650); NORMETANEPHRINE,URN/CRT RATIO 1271 ug/g CRT (0-400)
== END 2025-10-04 15:35 | disposition home or self-care (01) | DRG 281 ==
LOC: ER 16:19 → ICUE 23:13 → ER 23:13 → ICUE 09-28 00:11
PROVIDERS: Emergency Medicine; Family Medicine; Internal Medicine; Nurse Practitioner Acute Care; ADMIT Internal Medicine
PROC: 3E03329 Introduction of Other Anti-infective into Peripheral Vein, Percutaneous Approach (ICD-10-PCS; 2025-09-28)
PROC: 3E02340 Introduction of Influenza Vaccine into Muscle, Percutaneous Approach (ICD-10-PCS; 2025-09-28)
PROC: 3E053XZ Introduction of Vasopressor into Peripheral Artery, Percutaneous Approach (ICD-10-PCS; principal; 2025-09-29)
DX: I16.1 Hypertensive emergency (principal); E87.20 Acidosis, unspecified; I21.A1 Myocardial infarction type 2; F11.23 Opioid dependence with withdrawal; K86.1 Other chronic pancreatitis; R57.9 Shock, unspecified; E78.5 Hyperlipidemia, unspecified; E03.9 Hypothyroidism, unspecified; E87.6 Hypokalemia; G89.4 Chronic pain syndrome; I12.9 Hypertensive chronic kidney disease with stage 1 through stage 4 chronic kidney disease, or unspecified chronic kidney disease; N18.2 Chronic kidney disease, stage 2 (mild); E11.22 Type 2 diabetes mellitus with diabetic chronic kidney disease; F31.9 Bipolar disorder, unspecified; M17.12 Unilateral primary osteoarthritis, left knee; F41.9 Anxiety disorder, unspecified; K21.9 Gastro-esophageal reflux disease without esophagitis; I16.0 Hypertensive urgency; Z96.652 Presence of left artificial knee joint; Z23 Encounter for immunization; I27.20 Pulmonary hypertension, unspecified; Z88.8 Allergy status to other drugs, medicaments and biological substances; Z88.2 Allergy status to sulfonamides; Z91.148 Patient's other noncompliance with medication regimen for other reason; Z79.899 Other long term (current) drug therapy; Z79.890 Hormone replacement therapy; Z79.82 Long term (current) use of aspirin; Z87.19 Personal history of other diseases of the digestive system; Z91.048 Other nonmedicinal substance allergy status; Z91.014 Allergy to mammalian meats; Z88.0 Allergy status to penicillin; Z91.018 Allergy to other foods; Z90.49 Acquired absence of other specified parts of digestive tract; Z98.891 History of uterine scar from previous surgery; Z90.89 Acquired absence of other organs; Z87.891 Personal history of nicotine dependence; Z98.890 Other specified postprocedural states; Z86.79 Personal history of other diseases of the circulatory system; Z90.710 Acquired absence of both cervix and uterus; Z85.89 Personal history of malignant neoplasm of other organs and systems; Z86.03 Personal history of neoplasm of uncertain behavior
CPT/HCPCS: 36415; 71045; 71260; 74176; 74177; 80048; 80053; 82024; 82088; 82533; 82803; 82947; 83605; 83690; 83735; 83835; 83993; 84100; 84146; 84244; 84305; 84443; 84484; 85014; 85018; 85025; 93005; 93010; 93306; 96361; 96374-59; 96375; 96376; 99285-25; A9270; C1751; G0378; J0360; J0456; J1200; J1650; J1790; J2270; J2312; J2470; J2765; J2919; J3010; J3480; J7030; J7040; J7050; Q9967